=== PATIENT | female | born 1985 | race Caucasian/White ===

== ENCOUNTER 2020-05-11 20:27 | Emergency (ER) | payer MEDICAID, SELFPAY ==
--- NOTE | 2020-05-11 | XR_ITS ---
EXAMINATION: XR CHEST CLINICAL INFORMATION: Chest pain COMPARISON: 03/23/2014 TECHNIQUE: Frontal view of the chest was obtained. FINDINGS: Cardiac leads overlie the chest. The lungs are well expanded. There is no focal consolidation, edema, or effusion. No pneumothorax. The cardiomediastinal silhouette is within normal limits. No acute osseous abnormality. Epigastric surgical clips noted. IMPRESSION: Clear lungs.
[2020-05-11 20:33] VITALS: BP 149/98; BP 154/107; PULSE 100; PULSE 108; RESP 16; TEMP 36.9; O2SAT 100; BMI 23.7
--- NOTE | 2020-05-11 20:48 | ECG_ITS ---
Test Reason : chest pressure Blood Pressure : / mmHG Vent. Rate : 097 BPM Atrial Rate : 097 BPM P-R Int : 120 ms QRS Dur : 078 ms QT Int : 380 ms P-R-T Axes : 000 160 148 degrees QTc Int : 482 ms Normal sinus rhythm RSR' or QR pattern in V1 suggests right ventricular conduction delay suspect arm lead reversal due to axis shift Abnormal ECG When compared with ECG of 23-MAR-2014 00:12, advise repeat study Referred By: Generic ED Physician Electronically Signed By:WIN STAPLETON MD
[2020-05-11 21:49] VITALS: BP 149/88; PULSE 90; RESP 18
--- NOTE | 2020-05-11 21:52 | PC.NURSE ---
pt up to ambulate to restroom. pt denies dizziness at this time. pt ambulates with steady even gait. pt denies any chest pain but describes pain as pressure. pt alert, respirations easy, n/l, skin w/d/p. pt on monitor with sr. vs obtained. will continue to monitor pt.
[2020-05-11 22:00] VITALS: BP 149/88; PULSE 90; RESP 18; TEMP 36.9; O2SAT 100
--- NOTE | 2020-05-11 23:27 | ED.CHESTPAIN ---
HPI - Chest Pain General Chief Complaint: Dizziness Stated Complaint: chest tightness Time Seen by Provider: 05/11/20 22:40 Source: patient Mode of arrival: ambulatory History of Present Illness HPI narrative: patient states the chest pain that started earlier today. States epigastric and central chest that radiated to her head. Patient states this caused her to be lightheadedness and very nervous and came into emergency department. Patient denies nausea vomiting diarrhea denies dizziness. states pain has improved MD complaint: chest pain Onset: during rest Severity: moderate Quality: tightness Related Data Allergies Allergy/AdvReac Type Severity Reaction Status Date / Time latex [Latex] Allergy Intermediate ITCHINESS Verified 05/12/20 00:17 fentanyl [FENTANYL] Allergy Mild RASH Verified 05/12/20 00:17 morphine [MORPHINE] Allergy Mild RASH Verified 05/12/20 00:17 TREATED WITH BENADRYL amoxicillin [Augmentin] Allergy Unknown Rash Verified 05/12/20 00:17 ciprofloxacin Allergy Unknown Rash Verified 05/12/20 00:17 clavulanic acid [Augmentin] Allergy Unknown Rash Verified 05/12/20 00:17 hydromorphone [Dilaudid] Allergy Unknown Rash Verified 05/12/20 00:17 piperacillin [Zosyn] Allergy Unknown Rash Verified 05/12/20 00:17 tazobactam [Zosyn] Allergy Unknown Rash Verified 05/12/20 00:17 metoclopramide [From REGLAN] AdvReac Intermediate ANXIETY Verified 05/12/20 00:17 From ZOSYN Allergy Mild RASH Uncoded 05/12/20 00:17 Latex Allergy Mild Rash Uncoded 05/12/20 00:17 latex Allergy Mild Rash Uncoded 05/12/20 00:17 From DILAUDID AdvReac Mild RASH - Uncoded 04/19/20 17:51 TREAT WITH BENADRYL Review of Systems Review of Systems: Constitutional : No Weight loss, No Fever, No Chills, No Night Sweats, No Fatigue, No Malaise ENT/Mouth : No Hearing loss, No Ear Pain, No Nasal Congestion, No Sinus Pain, No Hoarseness, No sore throat, No Rhinorrhea, No Swallowing Difficulty Eyes: No Eye Pain, No Swelling, No Redness, No Foreign Body, No Discharge, No Vision Changes Cardiovascular : pos Chest Pain, pos SOB, no Dyspnea on Exertion, No Orthopnea, No Edema, No Palpitations Respiratory : No Cough, No Sputum, No Wheezing, No Smoke Exposure, No Dyspnea Gastrointestinal : pos Nausea, No Vomiting, No Diarrhea, No abdominal Pain, No Hematochezia, No Melena Genitourinary : No irregular bleeding, No Dysuria, No Urinary Frequency, No Hematuria, No Urinary Incontinence, No Urgency, No Flank Pain, No Urinary Flow Changes, No Hesitancy Musculoskeletal : No joint pain, No Myalgias, No Joint Swelling Skin : No Skin Lesions, No rash Neuro : No Weakness, No Numbness, No Paresthesias, No Loss of Consciousness, No Dizziness, No Headache Psych : No Anxiety/Panic, No Depression, No SI/HI/AH/VH Heme/Lymph: No Bruising, No Bleeding,No Lymphadenopathy Endocrine : No Polyuria, No Polydipsia, No Temperature Intolerance [facility] Past Medical History Medical History Hypothyroid Surgical History Liver transplant recipient Social History Social History Advance Directives: No Advance Directives Information Provided: No Physical Exam Vital Signs and I&O and Narrative: Vital Signs and I&O: Vital Signs Temp 98.5 F 05/11/20 22:00 Pulse 85 05/12/20 00:28 Resp 14 05/12/20 00:28 BP 154/105 H 05/12/20 00:28 Pulse Ox 97 05/12/20 00:28 Intake & Output 05/11/20 05/11/20 05/12/20 06:59 18:59 06:59 Intake Total 1000 / 1000 Balance 1000 / 1000 Weight 66.678 kg Intake: Intake, IV Amoun t 1000 / 1000 0.9 % Sodium C hloride 1,000 ml 1000 / 1000 @ 999 mls/hr I VCONT .Q1H1M FOR[facility]LY [facility], [facility] Rx#:[id number] Body Mass Index 23.7 vital signs reviewed pulse ox reviewed 100% room air interpreted by me Const: Other: Appearance: Alert. Oriented X3. No acute distress. Eyes: Pupils equal, round and reactive to light. ENT: Pharynx normal. Neck: Normal inspection. Neck supple. No lymph nodes noted. No crepitus CVS: Normal heart rate and rhythm. Pulses normal. Normal S1 and S2 Respiratory: No respiratory distress. Breath sounds normal. No Wheezing. No rales Abdomen: Soft and mild epigastric tender. No rigidity. No distention. good BS x4 Skin: Skin warm and dry. Normal skin color. Normal skin turgor. Extremities: No lower extremity edema. Neurovascular intact to all extremities. No Lacerations. No Rash Neuro: Oriented X 3. No motor deficit. No sensory deficit. Moving all extermities. No slurred speech. Course Reevaluation(s) Reevaluation #1: was called bedside secondary to patient being very anxious meeting that she wants to be knocked out she go to sleep Being angry with staff. I discussed with her laboratory work is pending. EKG is negative at 01:20. Negative troponin negative EKG at this point I doubt the patient has acute coronary syndrome for her chest pain. However throughout the stay patient got very anxious stating she had a headache however that has resolved. Will discharge home with follow-up with primary care doctor Time: 00:23 [facility] - Chest Pain Lab Data Attestation: I reviewed the patient's lab results. Result diagrams: 05/11/20 23:45 05/11/20 23:45 Labs: Lab Results 05/11/20 05/11/20 05/11/20 Range/Units 23:45 23:45 23:45 WBC 9.5 (4.8-10.8) X10*3/uL RBC 4.86 (4.20-5.50) X10*6/uL Hgb 14.0 (12.0-16.0) g/dl Hct 40.7 (37-47) % MCV 83.7 (80-98) fL MCH 28.8 (27.0-33.0) pg MCHC 34.4 (31.0-35.0) g/dl RDW 11.4 (11.0-16.0) % Plt Count 209 (160-400) X10*3/uL MPV 11.1 (9.4-12.3) fL Immature Gran % (Auto) 0.2 (0.0-0.4) % Neut % (Auto) 59.4 (45-73) % Lymph % (Auto) 28.7 (20-40) % [place] % (Auto) 8.7 (2-11) % Eos % (Auto) 2.8 (0-4) % Baso % (Auto) 0.2 (0-2) % Lymph # (Auto) 2.7 (1.2-4.9) X10*3/uL [place] # (Auto) 0.8 (0.1-1.2) X10*3/uL Eos # (Auto) 0.3 (0.0-0.4) X10*3/uL Baso # (Auto) 0.0 (0.0-0.2) X10*3/uL Abs Immat Gran (auto) 0.02 (0.00-0.03) X10*3/uL Absolute Neuts (auto) 5.7 (2.0-8.3) X10*3/uL Absolute Nucleated RBC 0.000 (0.0-0.012) X10*3/uL Nucleated RBC % (auto) 0.0 (0.0-0.2) /100WBC Sodium 139 (135-145) mmol/L Potassium 3.9 (3.3-5.1) mmol/l Chloride 107 (96-108) mmol/L Carbon Dioxide 25 (22-29) mmol/L Anion Gap 11 L (12-20) BUN 10 (9-16) mg/dL Creatinine 0.74 (0.5-1.4) mg/dL Estim Creat Clear Calc 101.2 Estimated GFR > 60 Random Glucose 98 (60-115) mg/dL Calcium 9.1 (8.4-10.2) mg/dL Total Bilirubin 0.7 (0.0-1.0) mg/dL Direct Bilirubin 0.3 (0.0-0.5) mg/dL AST 17 (5-31) U/L ALT 18 (0-31) U/L Alkaline Phosphatase 72 (39-117) U/L Troponin I High Sens < 3.5 (<3.5-17.0) ng/L Total Protein 7.2 (6.5-8.0) g/dL Albumin 4.4 (3.5-5.0) g/dL Lipase 102 H (8-78) U/L ECG Data ECG #1: Attestation: I personally reviewed and interpreted this ECG as follows: Interpretation: normal sinus rhythm. 97 beats per minute normal axis no ST-T changes normal IA intervals Discharge Plan Discharge Clinical Impression: Anxiety Chest pain Qualifiers: Chest pain type: unspecified Qualified Code(s): R07.9 - Chest pain, unspecified Headache Qualifiers: Headache type: unspecified Patient Disposition: Home, Self-Care Instructions: Chest Pain (ED), Acute Headache (ED), Anxiety (ED) Additional Instructions: Thank you for visiting the emergency department today. If your symptoms worsen or do not resolve completely please return to the emergency department immediately or call 911. if he have any questions please call your primary care physician Referrals: Diana Flores [Emergency Nurse] - 2 days Interventions: ED Discharge Assessment Last Done: 05/12/20 01:50 Discharge Date/Time: 05/12/20 01:51
[2020-05-11 23:51] LABS: MANUAL DIFF FLAG NO
[2020-05-11 23:53] LABS: Basophils Percent Auto 0.2 % (0-2); Eosinophils Absolute Auto 0.3 X10*3/uL (0.0-0.4); Eosinophils Percent Auto 2.8 % (0-4); Hematocrit 40.7 % (37-47); Imm Gran Abs Auto 0.02 X10*3/uL (0.00-0.03); Imm Gran Pct Auto 0.2 % (0.0-0.4); Lymphocytes Absolute Auto 2.7 X10*3/uL (1.2-4.9); Lymphocytes Percent Auto 28.7 % (20-40); Mean Corpuscular HGB Conc 34.4 g/dl (31.0-35.0); Mean Corpuscular Hemoglobin 28.8 pg (27.0-33.0); Mean Corpuscular Volume 83.7 fL (80-98); Mean Platelet Volume 11.1 fL (9.4-12.3); Monocytes Absolute Auto 0.8 X10*3/uL (0.1-1.2); Monocytes Percent Auto 8.7 % (2-11); Neutrophils Absolute Auto 5.7 X10*3/uL (2.0-8.3); Neutrophils Percent Auto 59.4 % (45-73); Platelet Count 209 X10*3/uL (160-400); Red Blood Count 4.86 X10*6/uL (4.20-5.50); Red Cell Distribution Width 11.4 % (11.0-16.0); White Blood Count 9.5 X10*3/uL (4.8-10.8)
[2020-05-12] MEDS: Famotidine/PF 20 MG/2 ML VIAL IVPUSH (00:20)
[2020-05-12] MEDS: Lidocaine HCl Viscous 2 % 15 ML SOLUTION MUCOUS MEM ×2 (00:20→00:21)
[2020-05-12] MEDS: PHENobarb/Hyoscy/Atropine/Scop 10 ML ELIXIR PO (00:21)
[2020-05-12] MEDS: Magnesium Hydrox/Alum Hydrox 30 ML ORAL.SUSP PO (00:21)
[2020-05-12] MEDS: 0.9 % Sodium Chloride 1,000 ML 999 ML IVCONT (00:22)
[2020-05-12 00:28] VITALS: BP 154/105; PULSE 85; RESP 14; O2SAT 97
[2020-05-12] MEDS: diphenhydrAMINE HCL 50 MG/ML VIAL 25 MG IVPUSH (00:34)
[2020-05-12 00:43] LABS: Alanine Aminotransferase 18 U/L (0-31); Albumin Level 4.4 g/dL (3.5-5.0); Alkaline Phosphatase 72 U/L (39-117); Anion Gap 11 (12-20); Aspartate Amino Transferase 17 U/L (5-31); Bilirubin Direct 0.3 mg/dL (0.0-0.5); Bilirubin Total 0.7 mg/dL (0.0-1.0); Blood Urea Nitrogen 10 mg/dL (9-16); Calcium 9.1 mg/dL (8.4-10.2); Carbon Dioxide 25 mmol/L (22-29); Chloride 107 mmol/L (96-108); Creatinine Clr Calc Pharmacy 101.2; Estimated Glomerular Filt Rate > 60; Glucose Random 98 mg/dL (60-115); Lipase 102 U/L (8-78); Potassium 3.9 mmol/l (3.3-5.1); Sodium 139 mmol/L (135-145); Total Protein 7.2 g/dL (6.5-8.0)
[2020-05-12 00:44] LABS: Troponin-I High Sensitivity < 3.5 ng/L (<3.5-17.0)
--- NOTE | 2020-05-12 00:50 | PC.NURSE ---
Pt tearful and requesting to speak with md. pt tearful in room and apologizing for bothering the nurse pt states i have a headache and feeling anxious MD aware and meds ordered. pt medicated with meds as per emar. Pt given gingerale and crackers to eat. Pt given warm blanket for comfort and pt is satisfied.
== END 2020-05-12 01:51 | disposition home or self-care (01) ==
PROVIDERS: Emergency Provider Emergency Medicine
DX: R07.9 Chest pain, unspecified (principal); F41.1 Generalized anxiety disorder; F43.0 Acute stress reaction
CPT/HCPCS: 36415; 71045; 80048; 80076; 83690; 84484; 85025; 93005; 96361; 96374; 96375; 99284; J1200; J2765

== ENCOUNTER 2020-08-07 14:12 | Outpatient (REF) | payer MEDICAID, SELFPAY | END 2020-08-07 14:13 | disposition home or self-care (01) | LOC: HO.LAB 14:12 | PROVIDERS: Visit Provider Internal Medicine | DX: Z20.828 Contact with and (suspected) exposure to other viral communicable diseases (principal) | CPT/HCPCS: 36415; C9803; U0003 ==

== ENCOUNTER 2020-08-13 15:23 | Outpatient (REF) | payer MEDICAID, SELFPAY ==
[2020-08-13 16:00] LABS: MANUAL DIFF FLAG NO
[2020-08-13 16:14] LABS: Basophils Percent Auto 0.3 % (0-2); Eosinophils Absolute Auto 0.1 X10*3/uL (0.0-0.4); Eosinophils Percent Auto 1.7 % (0-4); Hematocrit 44.6 % (37-47); Hemoglobin 14.7 g/dl (12.0-16.0); Imm Gran Abs Auto 0.05 X10*3/uL (0.00-0.03); Imm Gran Pct Auto 0.7 % (0.0-0.4); Lymphocytes Absolute Auto 1.7 X10*3/uL (1.2-4.9); Mean Corpuscular Hemoglobin 28.5 pg (27.0-33.0); Mean Corpuscular Volume 86.6 fL (80-98); Monocytes Absolute Auto 0.7 X10*3/uL (0.1-1.2); Monocytes Percent Auto 9.5 % (2-11); Neutrophils Absolute Auto 4.8 X10*3/uL (2.0-8.3); Neutrophils Percent Auto 64.8 % (45-73); Platelet Count 213 X10*3/uL (160-400); Red Blood Count 5.15 X10*6/uL (4.20-5.50); White Blood Count 7.5 X10*3/uL (4.8-10.8)
[2020-08-13 16:49] LABS: Alanine Aminotransferase 23 U/L (0-31); Albumin Level 4.5 g/dL (3.5-5.0); Alkaline Phosphatase 64 U/L (39-117); Anion Gap 12 (12-20); Aspartate Amino Transferase 23 U/L (5-31); Bilirubin Total 0.8 mg/dL (0.0-1.0); Blood Urea Nitrogen 11 mg/dL (9-16); Calcium 9.5 mg/dL (8.4-10.2); Carbon Dioxide 29 mmol/L (22-29); Chloride 103 mmol/L (96-108); Estimated Glomerular Filt Rate > 60; Glucose Random 97 mg/dL (60-115); Magnesium 2.1 mg/dL (1.6-2.6); Phosphorus 2.7 mg/dL (2.7-4.5); Potassium 4.2 mmol/l (3.3-5.1); Sodium 140 mmol/L (135-145); Total Protein 7.8 g/dL (6.5-8.0)
[2020-08-14 10:42] LABS: Tacrolimus Prograf 1.9 mcg/L
== END 2020-08-13 15:24 | disposition home or self-care (01) ==
LOC: HO.LAB 15:23
PROVIDERS: PCP Internal Medicine; Visit Provider Internal Medicine
DX: Z94.4 Liver transplant status (principal)
CPT/HCPCS: 36415; 80053; 80197; 83735; 84100; 85025

== ENCOUNTER 2020-10-19 16:23 | Emergency (ER) | payer MEDICAID, SELFPAY ==
[2020-10-19 16:36] VITALS: BP 115/75; PULSE 88; RESP 18; TEMP 36.8; O2SAT 95; BMI 24.1
== END 2020-10-19 17:18 | disposition left against medical advice (07) ==
PROVIDERS: Emergency Provider Emergency Medicine; PCP Internal Medicine
DX: R10.30 Lower abdominal pain, unspecified (principal)
CPT/HCPCS: 99282

== ENCOUNTER 2020-11-12 13:59 | Emergency (ER) | payer MEDICAID, SELFPAY ==
[2020-11-12 14:08] VITALS: PULSE 120; O2SAT 98
--- NOTE | 2020-11-12 14:10 | ECG_ITS ---
Test Reason : MEDICAL CLEARANCE Blood Pressure : / mmHG Vent. Rate : 097 BPM Atrial Rate : 097 BPM P-R Int : 140 ms QRS Dur : 076 ms QT Int : 372 ms P-R-T Axes : 065 074 070 degrees QTc Int : 472 ms Normal sinus rhythm Normal ECG When compared with ECG of 11-MAY-2020 20:43, T wave inversion no longer evident in Lateral leads Referred By: Fabiano Syed Electronically Signed By:MARTHA MOELLER
--- NOTE | 2020-11-12 14:10 | ED.PSYCH ---
HPI - Psych General Chief Complaint: Psychiatric Symptoms Stated Complaint: si Time Seen by Provider: 11/12/20 14:06 Source: patient Mode of arrival: ambulatory Limitations: no limitations History of Present Illness HPI Narrative: 35-year-old female with history of depression, anxiety prior overdose that led to her having liver failure and liver transplant in 2008 being followed by Psychiatry she has had admissions since here 6 years ago she comes in today complaining of increased depression and suicidal ideation today she called a male block splitter operator whom she was intermittent with and had abrupt break up several months ago and has not toxic own today she was feeling down so she wanted his companionship and call them and she felt he was being very cold to her and not recipient to her emotional needs this triggered her anxiety and depression and made vague SI statements. She states that she has otherwise been taking medications and skipped yesterday as she has been feeling down. Related Data Home Medications Medication Instructions Recorded Confirmed amlodipine 10 mg PO DAILY 11/12/20 11/12/20 citalopram [Celexa] 10 mg PO DAILY 11/12/20 11/12/20 citalopram [Celexa] 20 mg PO DAILY 11/12/20 11/12/20 dextroamphetamine-amphetamine See Rx Instructions .ROUTE .COMPLEX 11/12/20 11/12/20 [Adderall] docusate sodium [Colace] 100 mg PO BID PRN 11/12/20 11/12/20 levothyroxine 50 mcg PO DAILY 11/12/20 11/12/20 lorazepam 0.5 - 1 mg PO TID PRN 11/12/20 11/12/20 omeprazole 20 mg PO DAILY 11/12/20 11/12/20 ondansetron HCl [Zofran] 4 mg PO Q8H PRN 11/12/20 11/12/20 tacrolimus 2 mg PO BID 11/12/20 11/12/20 ursodiol 300 mg PO BID 11/12/20 11/12/20 Allergies Allergy/AdvReac Type Severity Reaction Status Date / Time latex [Latex] Allergy Intermediate ITCHINESS Verified 05/12/20 00:17 fentanyl [FENTANYL] Allergy Mild RASH Verified 05/12/20 00:17 morphine [MORPHINE] Allergy Mild RASH Verified 05/12/20 00:17 TREATED WITH BENADRYL amoxicillin [Augmentin] Allergy Unknown Rash Verified 05/12/20 00:17 ciprofloxacin Allergy Unknown Rash Verified 05/12/20 00:17 clavulanic acid [Augmentin] Allergy Unknown Rash Verified 05/12/20 00:17 hydromorphone [Dilaudid] Allergy Unknown Rash Verified 05/12/20 00:17 piperacillin [Zosyn] Allergy Unknown Rash Verified 05/12/20 00:17 tazobactam [Zosyn] Allergy Unknown Rash Verified 05/12/20 00:17 metoclopramide [From REGLAN] AdvReac Intermediate ANXIETY Verified 05/12/20 00:17 From ZOSYN Allergy Mild RASH Uncoded 05/12/20 00:17 Latex Allergy Mild Rash Uncoded 05/12/20 00:17 latex Allergy Mild Rash Uncoded 05/12/20 00:17 From DILAUDID AdvReac Mild RASH - Uncoded 04/19/20 17:51 TREAT WITH BENADRYL Review of Systems Review of Systems: Constitutional: No Weight loss, No Fever, No Chills, No Night Sweats, No Fatigue, No Malaise ENT/Mouth: No Hearing loss, No Ear Pain, No Nasal Congestion, No Sinus Pain, No Hoarseness, No sore throat, No Rhinorrhea, No Swallowing Difficulty Eyes: No Eye Pain, No Swelling, No Redness, No Foreign Body, No Discharge, No Vision Changes Cardiovascular: No Chest Pain, No SOB, No Dyspnea on Exertion, No Orthopnea, No Edema, No Palpitations Respiratory: No Cough, No Sputum, No Wheezing, No Dyspnea Gastrointestinal: No Nausea, No Vomiting, No Diarrhea, No Constipation, No abdominal Pain, No Hematochezia, No Melena Genitourinary: no irregular bleeding, No Dysuria, No Urinary Frequency, No Hematuria, No Urinary Incontinence, No Urgency, No Flank Pain, No Urinary Flow Changes, No Hesitancy Musculoskeletal: No joint pain, No Myalgias, No Joint Swelling Skin: No Skin Lesions, No rash Neuro: No Weakness, No Numbness, No Paresthesias, No Loss of Consciousness, No Dizziness, No Headache Psych: As noted per HPI Heme/Lymph: No Bruising, No Bleeding,No Lymphadenopathy Endocrine: No Polyuria, No Polydipsia, No Temperature Intolerance Yes all other systems are reviewed and are negative PMFSH Past Medical History Medical History Hypothyroid Surgical History Liver transplant recipient Social History Social History Alcohol intake: never Smoking Status: Never smoker Use of substances other than those prescribed or required for medical reasons: No Advance Directives: No Advance Directives Information Provided: No Physical Exam Vital Signs: Vital Signs: Last Vital Signs Temp 99.1 F 11/12/20 14:33 Pulse 117 H 11/12/20 14:33 Resp 18 11/12/20 16:13 BP 148/99 H 11/12/20 14:33 Pulse Ox 97 11/12/20 14:33 Body Mass Index 24.1 Reviewed Const: General: cooperative, healthy appearing and anxious; No intoxicated appearing Nutritional Appearance: average body habitus Orientation/consciousness: patient oriented x3 HENMT: Head: Yes normal to inspection Ears: hearing grossly normal bilaterally Eyes: General: appearance normal, both eyes and all related structures Visual Hanna: normal visual hanna by confrontation Neck: Neck: Yes normal visual inspection, No positive Brudzinski's sign, No positive Kernig's sign and No tender Thyroid: Thyroid normal Chest: Chest palpation & inspection: normal inspection of the chest Resp: Effort & Inspection: normal respiratory effort Cardio: Jugular venous distension: no JVD Rhythm: regular rhythm Heart sounds: S1 normal heart sound present and S2 normal heart sound present GI: Inspection: Yes normal to inspection Palpation (GI): Soft to palpation Percussion: Yes normal to percussion Auscultation: normal bowel sounds : General: Yes no CVA tenderness Back/Spine/Pelvis: Back: no CVA tenderness Skin: General skin exam: no rashes or lesions noted Neuro: General: patient oriented x3 Extrem: General: Yes normal to inspection Course Reevaluation(s) Reevaluation #1: Acute anxiety secondary situational stress history as noted above. Will get medical screening labs and care team evaluation. Ativan has worked well in the past. Off note she did tell me that she just finished her antibiotics for recent UTI she did have some burning like lower abdominal pain which has improved. Reevaluation #2: Labs overall reassuring Has been much calmer after receiving Ativan 1 mg. She was medically cleared and subsequently evaluate by the care team Who also consult with the mother Has extensive outpatient follow-up will be in to do follow-up tomorrow with her psychiatrist Dr. Nicole Care team has cleared patient for discharge. Patient contracts for safety. No immediate concerns. Stable for discharge. Consultations Consultation #1: Care team Consultation #2: I spoke to patient's mother Quiana at [phone] She feels that she better at home with her they have extensive plan this is not a new event she has has numerous events like this and usually once and motion control she can go home better for her to be at home more coming and controlled environment She will be able to follow-up tomorrow with her psychiatrist who has direct contact to. She requests and feels better patient going home with her. MDM - Psych Lab Data Result diagrams: 11/12/20 15:09 11/12/20 15:09 Labs: Lab Results 11/12/20 11/12/20 11/12/20 Range/Units 14:53 14:53 14:53 WBC (4.8-10.8) X10*3/uL RBC (4.20-5.50) X10*6/uL Hgb (12.0-16.0) g/dl Hct (37-47) % MCV (80-98) fL MCH (27.0-33.0) pg MCHC (31.0-35.0) g/dl RDW (11.0-16.0) % Plt Count (160-400) X10*3/uL MPV (9.4-12.3) fL Immature Gran % (Auto) (0.0-0.4) % Neut % (Auto) (45-73) % Lymph % (Auto) (20-40) % [place] % (Auto) (2-11) % Eos % (Auto) (0-4) % Baso % (Auto) (0-2) % Lymph # (Auto) (1.2-4.9) X10*3/uL [place] # (Auto) (0.1-1.2) X10*3/uL Eos # (Auto) (0.0-0.4) X10*3/uL Baso # (Auto) (0.0-0.2) X10*3/uL Abs Immat Gran (auto) (0.00-0.03) X10*3/uL Absolute Neuts (auto) (2.0-8.3) X10*3/uL Absolute Nucleated RBC (0.0-0.012) X10*3/uL Nucleated RBC % (auto) (0.0-0.2) /100WBC PT (10.8-13.0) SEC INR (0.9-1.1) APTT (24.1-38.0) SEC Sodium (135-145) mmol/L Potassium (3.3-5.1) mmol/L Chloride (96-108) mmol/L Carbon Dioxide (22-29) mmol/L Anion Gap (12-20) BUN (9-16) mg/dL Creatinine (0.5-1.4) mg/dL Estim Creat Clear Calc Estimated GFR Random Glucose (60-115) mg/dL Calcium (8.4-10.2) mg/dL Total Bilirubin (0.0-1.0) mg/dL AST (5-31) U/L ALT (0-31) U/L Alkaline Phosphatase (39-117) U/L Total Protein (6.5-8.0) g/dL Albumin (3.5-5.0) g/dL Lipase (8-78) U/L Urine Color STRAW Urine Appearance CLEAR Urine pH 5.5 (5.0-8.0) Ur Specific [place] <= 1.005 (1.005-1.025) Urine Protein NEG (NEG-TRACE) MG/DL Urine Glucose (UA) NEG (NEG) MG/DL Urine Ketones NEG (NEG) MG/DL Urine Blood NEG (NEG) Urine Nitrite NEG (NEG) Ur Leukocyte Esterase NEG (NEG) Urine RBC 0 (0) /HPF Urine WBC 0-2 (0-4) /HPF Ur Squamous Epith Cells NONE /LPF Urine Bacteria NONE /LPF Urine Test NEGATIVE (NEGATIVE) Urine Opiates Screen POSITIVE H (Not Detect) Ur Barbiturates Screen Not Detected (Not Detect) Ur Phencyclidine Scrn Not Detected (Not Detect) Ur Amphetamines Screen POSITIVE H (Not Detect) U Benzodiazepines Scrn Not Detected (Not Detect) Urine Cocaine Screen Not Detected (Not Detect) U Marijuana (THC) Screen Not Detected (Not Detect) Ethyl Alcohol mg/dL COVID-19 (ODIN) (Negative) COVID-19 Clin Com 11/12/20 11/12/20 11/12/20 Range/Units 15:09 15:09 15:09 WBC 6.6 (4.8-10.8) X10*3/uL RBC 4.49 (4.20-5.50) X10*6/uL Hgb 13.1 (12.0-16.0) g/dl Hct 38.6 (37-47) % MCV 86.0 (80-98) fL MCH 29.2 (27.0-33.0) pg MCHC 33.9 (31.0-35.0) g/dl RDW 11.9 (11.0-16.0) % Plt Count 180 (160-400) X10*3/uL MPV 11.5 (9.4-12.3) fL Immature Gran % (Auto) 0.3 (0.0-0.4) % Neut % (Auto) 70.2 (45-73) % Lymph % (Auto) 21.4 (20-40) % [place] % (Auto) 6.7 (2-11) % Eos % (Auto) 1.2 (0-4) % Baso % (Auto) 0.2 (0-2) % Lymph # (Auto) 1.4 (1.2-4.9) X10*3/uL [place] # (Auto) 0.4 (0.1-1.2) X10*3/uL Eos # (Auto) 0.1 (0.0-0.4) X10*3/uL Baso # (Auto) 0.0 (0.0-0.2) X10*3/uL Abs Immat Gran (auto) 0.02 (0.00-0.03) X10*3/uL Absolute Neuts (auto) 4.6 (2.0-8.3) X10*3/uL Absolute Nucleated RBC 0.000 (0.0-0.012) X10*3/uL Nucleated RBC % (auto) 0.0 (0.0-0.2) /100WBC PT 12.4 (10.8-13.0) SEC INR 1.0 (0.9-1.1) APTT 30.3 (24.1-38.0) SEC Sodium 140 (135-145) mmol/L Potassium 4.3 (3.3-5.1) mmol/L Chloride 105 (96-108) mmol/L Carbon Dioxide 27 (22-29) mmol/L Anion Gap 12 (12-20) BUN 7 L (9-16) mg/dL Creatinine 0.80 (0.5-1.4) mg/dL Estim Creat Clear Calc 89.1 Estimated GFR > 60 Random Glucose 102 (60-115) mg/dL Calcium 9.4 (8.4-10.2) mg/dL Total Bilirubin 0.6 (0.0-1.0) mg/dL AST 17 (5-31) U/L ALT 18 (0-31) U/L Alkaline Phosphatase 57 (39-117) U/L Total Protein 7.3 (6.5-8.0) g/dL Albumin 4.4 (3.5-5.0) g/dL Lipase 59 (8-78) U/L Urine Color Urine Appearance Urine pH (5.0-8.0) Ur Specific [place] (1.005-1.025) Urine Protein (NEG-TRACE) MG/DL Urine Glucose (UA) (NEG) MG/DL Urine Ketones (NEG) MG/DL Urine Blood (NEG) Urine Nitrite (NEG) Ur Leukocyte Esterase (NEG) Urine RBC (0) /HPF Urine WBC (0-4) /HPF Ur Squamous Epith Cells /LPF Urine Bacteria /LPF Urine Test (NEGATIVE) Urine Opiates Screen (Not Detect) Ur Barbiturates Screen (Not Detect) Ur Phencyclidine Scrn (Not Detect) Ur Amphetamines Screen (Not Detect) U Benzodiazepines Scrn (Not Detect) Urine Cocaine Screen (Not Detect) U Marijuana (THC) Screen (Not Detect) Ethyl Alcohol mg/dL COVID-19 (ODIN) (Negative) COVID-19 Clin Com 11/12/20 11/12/20 Range/Units 15:09 15:09 WBC (4.8-10.8) X10*3/uL RBC (4.20-5.50) X10*6/uL Hgb (12.0-16.0) g/dl Hct (37-47) % MCV (80-98) fL MCH (27.0-33.0) pg MCHC (31.0-35.0) g/dl RDW (11.0-16.0) % Plt Count (160-400) X10*3/uL MPV (9.4-12.3) fL Immature Gran % (Auto) (0.0-0.4) % Neut % (Auto) (45-73) % Lymph % (Auto) (20-40) % [place] % (Auto) (2-11) % Eos % (Auto) (0-4) % Baso % (Auto) (0-2) % Lymph # (Auto) (1.2-4.9) X10*3/uL [place] # (Auto) (0.1-1.2) X10*3/uL Eos # (Auto) (0.0-0.4) X10*3/uL Baso # (Auto) (0.0-0.2) X10*3/uL Abs Immat Gran (auto) (0.00-0.03) X10*3/uL Absolute Neuts (auto) (2.0-8.3) X10*3/uL Absolute Nucleated RBC (0.0-0.012) X10*3/uL Nucleated RBC % (auto) (0.0-0.2) /100WBC PT (10.8-13.0) SEC INR (0.9-1.1) APTT (24.1-38.0) SEC Sodium (135-145) mmol/L Potassium (3.3-5.1) mmol/L Chloride (96-108) mmol/L Carbon Dioxide (22-29) mmol/L Anion Gap (12-20) BUN (9-16) mg/dL Creatinine (0.5-1.4) mg/dL Estim Creat Clear Calc Estimated GFR Random Glucose (60-115) mg/dL Calcium (8.4-10.2) mg/dL Total Bilirubin (0.0-1.0) mg/dL AST (5-31) U/L ALT (0-31) U/L Alkaline Phosphatase (39-117) U/L Total Protein (6.5-8.0) g/dL Albumin (3.5-5.0) g/dL Lipase (8-78) U/L Urine Color Urine Appearance Urine pH (5.0-8.0) Ur Specific [place] (1.005-1.025) Urine Protein (NEG-TRACE) MG/DL Urine Glucose (UA) (NEG) MG/DL Urine Ketones (NEG) MG/DL Urine Blood (NEG) Urine Nitrite (NEG) Ur Leukocyte Esterase (NEG) Urine RBC (0) /HPF Urine WBC (0-4) /HPF Ur Squamous Epith Cells /LPF Urine Bacteria /LPF Urine Test (NEGATIVE) Urine Opiates Screen (Not Detect) Ur Barbiturates Screen (Not Detect) Ur Phencyclidine Scrn (Not Detect) Ur Amphetamines Screen (Not Detect) U Benzodiazepines Scrn (Not Detect) Urine Cocaine Screen (Not Detect) U Marijuana (THC) Screen (Not Detect) Ethyl Alcohol < 10 mg/dL COVID-19 (ODIN) Negative (Negative) COVID-19 Clin Com See Note Discharge Plan Discharge Clinical Impression: Acute anxiety Patient Disposition: Home, Self-Care Instructions: Anxiety (ED) Additional Instructions: Please follow-up with your outpatient provider tomorrow Return if any concerns or worsening symptoms Thank you Prescriptions: No Action ondansetron HCl [Zofran] 4 mg Tablet 4 mg PO Q8H PRN (Reason: Nausea) RF: 0 dextroamphetamine-amphetamine [Adderall] 10 mg Tablet See Rx Instructions .ROUTE .COMPLEX RF: 0 amlodipine 5 mg Tablet 10 mg PO DAILY RF: 0 citalopram [Celexa] 20 mg Tablet 20 mg PO DAILY RF: 0 citalopram [Celexa] 20 mg Tablet 10 mg PO DAILY RF: 0 levothyroxine 50 mcg Tablet 50 mcg PO DAILY RF: 0 ursodiol 300 mg Capsule 300 mg PO BID RF: 0 docusate sodium [Colace] 100 mg Capsule 100 mg PO BID PRN (Reason: Constipation) RF: 0 omeprazole 20 mg Capsule,Delayed Release(Dr/Ec) 20 mg PO DAILY RF: 0 lorazepam 1 mg Tablet 0.5 - 1 mg PO TID PRN (Reason: Anxiety) RF: 0 tacrolimus 1 mg Capsule 2 mg PO BID RF: 0 Referrals: Rick Davenport MD [Primary Care Provider] - 1 day
[2020-11-12 14:28] VITALS: BP 148/99; PULSE 117; RESP 18; TEMP 37.3; O2SAT 97; BMI 24.1
[2020-11-12 14:33] VITALS: BP 148/99; PULSE 117; RESP 20; TEMP 37.3; O2SAT 97
[2020-11-12] MEDS: LORazepam 1 MG TABLET PO (14:39)
[2020-11-12 15:06] LABS: Glucose Urine UA NEG (NEG); Leukocyte Esterase Urine NEG (NEG); Nitrite Urine NEG (NEG); PH 5.5 (5.0-8.0); Specific Gravity - Urine <= 1.005 (1.005-1.025); Urine Blood NEG (NEG); Urine Ketones NEG (NEG); Urine Protein NEG (NEG-TRACE)
[2020-11-12 15:08] LABS: Appearance Urine CLEAR; Color Urine STRAW; UPreg QC Valid YES; Urine Pregnancy NEGATIVE (NEGATIVE)
[2020-11-12 15:17] LABS: MANUAL DIFF FLAG NO
[2020-11-12 15:18] LABS: RBC Urine 0 /HPF (0); WBC Urine 0-2 /HPF (0-4)
[2020-11-12 15:24] LABS: Basophils Percent Auto 0.2 % (0-2); Eosinophils Absolute Auto 0.1 X10*3/uL (0.0-0.4); Eosinophils Percent Auto 1.2 % (0-4); Hematocrit 38.6 % (37-47); Hemoglobin 13.1 g/dl (12.0-16.0); Imm Gran Abs Auto 0.02 X10*3/uL (0.00-0.03); Imm Gran Pct Auto 0.3 % (0.0-0.4); Lymphocytes Absolute Auto 1.4 X10*3/uL (1.2-4.9); Lymphocytes Percent Auto 21.4 % (20-40); Mean Corpuscular HGB Conc 33.9 g/dl (31.0-35.0); Mean Corpuscular Hemoglobin 29.2 pg (27.0-33.0); Mean Platelet Volume 11.5 fL (9.4-12.3); Monocytes Absolute Auto 0.4 X10*3/uL (0.1-1.2); Monocytes Percent Auto 6.7 % (2-11); Neutrophils Absolute Auto 4.6 X10*3/uL (2.0-8.3); Neutrophils Percent Auto 70.2 % (45-73); Platelet Count 180 X10*3/uL (160-400); Red Blood Count 4.49 X10*6/uL (4.20-5.50); Red Cell Distribution Width 11.9 % (11.0-16.0); White Blood Count 6.6 X10*3/uL (4.8-10.8)
[2020-11-12 15:27] LABS: Prothrombin Time 12.4 SEC (10.8-13.0)
[2020-11-12 15:30] LABS: Partial Thromboplastin Time 30.3 SEC (24.1-38.0)
[2020-11-12 15:34] LABS: Amphetamine Screen Urine POSITIVE (Not Detect); Barbiturates, Urine Not Detected (Not Detect); Benzodiazepines Screen Urine Not Detected (Not Detect); Cannabinoid Screen Urine Not Detected (Not Detect); Cocaine Screen Urine Not Detected (Not Detect); Opiate Screen Urine POSITIVE (Not Detect); Phencyclidine Screen Urine Not Detected (Not Detect)
[2020-11-12 15:40] LABS: COVID-19 Test Negative (Negative)
[2020-11-12 15:43] LABS: Ethanol < 10 mg/dL
[2020-11-12 15:46] LABS: Alanine Aminotransferase 18 U/L (0-31); Albumin Level 4.4 g/dL (3.5-5.0); Alkaline Phosphatase 57 U/L (39-117); Anion Gap 12 (12-20); Aspartate Amino Transferase 17 U/L (5-31); Bilirubin Total 0.6 mg/dL (0.0-1.0); Blood Urea Nitrogen 7 mg/dL (9-16); Calcium 9.4 mg/dL (8.4-10.2); Carbon Dioxide 27 mmol/L (22-29); Chloride 105 mmol/L (96-108); Creatinine Clr Calc Pharmacy 89.1; Estimated Glomerular Filt Rate > 60; Glucose Random 102 mg/dL (60-115); Lipase 59 U/L (8-78); Potassium 4.3 mmol/L (3.3-5.1); Sodium 140 mmol/L (135-145); Total Protein 7.3 g/dL (6.5-8.0)
--- NOTE | 2020-11-12 16:00 | PC.NURSE ---
PT sobbing in community area, verbal reassurance given. PT reports she had an argument with someone she cares about and that she is too broken to love , pt reports the ativan was ineffective, she is having a hard time controlling her crying, pt reports she has never been this bad before. PT repors she had a liver transplant 10 years ago from an unintentional tylenol overdose. PT reports that in the past therapy and medication have been helpful, states that she has been missing doses of her medication due to sleeping too much due to her depression.
[2020-11-12 16:13] VITALS: RESP 18
--- NOTE | 2020-11-12 16:55 | PC.NURSE ---
PT's mother called, stated that PT is working closely with two psychiatrists Dr Valentin and Dr Nagy, she said that they are concerned that PT's medications will be changed. She states that PT has a safe place to go and is requesting a call before decisions are made reguarding PT. Mom (Quiana [phone])
[2020-11-12] MEDS: diphenhydrAMINE HCL 25 MG TABLET 50 MG PO (17:52)
[2020-11-12] MEDS: oxyCODONE HCl Immed Release 5 MG TABLET PO (17:52)
--- NOTE | 2020-11-12 18:01 | PC.NURSE ---
PT's mother requesting updates about plan of care, pt gave verbal permission to update her mother.
--- NOTE | 2020-11-12 19:12 | PC.NURSE ---
Report received. PT is resting in her room. Asked politely for warm blankets. Calm and cooperative. PT is waiting to be seen by CARE team.
--- NOTE | 2020-11-12 21:12 | MHC.CARE ---
CARE team consult requested due to [facility] having no clinicians available to assess pt until either the overnight shift or the morning. Pt arrived to ED via EMS very distraught, saying she wanted to , and was inconsolable. Pt received 2 doses of ativan which had positive effect with pt's level of dysregulation. Pt reported that she has been having increasing depression for the past week, and passive SI with no plan or intent to harm herself. Pt has two psychiatrists that she works with (Dr. Valentin and Dr. Nagy) and started with a new therapist through [facility] a few weeks ago. Pt lives with her mother whom she feels safe with. Pt identified triggering event today was feeling betrayed and abandoned by a friend whom she felt that she could trust and rely on. This quality analyst/technical writer discussed possible referral for PHP, and described the program and the benefit pt would receive from it. Pt doesn't feel that an inpt psychiatric admission would be helpful to her at this time and isn't presenting as an acute risk to harm herself. Pt reported that she lives with her mother and feels safe with her at home. Pt and her mother are comfortable with her discharging home. They'll be following up with all of her behavioral health providers in the morning. PHP compliance coordinator contacted re: referral for treatment. ED provider initially not in agreement with disposition, however he spoke with pt's mother directly in order to finalize plan of care.
== END 2020-11-12 22:11 | disposition home or self-care (01) ==
PROVIDERS: Nurse Practitioner Primary Care; Emergency Provider Emergency Medicine; PCP Internal Medicine
DX: F41.9 Anxiety disorder, unspecified (principal); F32.9 Major depressive disorder, single episode, unspecified; R45.851 Suicidal ideations; Z20.822 Contact with and (suspected) exposure to COVID-19; F11.90 Opioid use, unspecified, uncomplicated; F15.90 Other stimulant use, unspecified, uncomplicated
CPT/HCPCS: 36415; 80053; 80307; 80320; 81001; 81025; 83690; 85025; 85610; 85730; 87635; 93005; 99284; 99285; Q0163

== ENCOUNTER 2020-12-20 10:20 | Observation (INO) | payer MEDICAID, SELFPAY ==
[2020-12-20] VITALS (11 sets, daily range): BP systolic 102–140; BP diastolic 67–90; PULSE 110–135; RESP 17–18; TEMP 36.6–36.9; O2SAT 97–100; BMI 24.2
--- NOTE | ~2020-12-20 | XR_ITS ---
EXAMINATION: XR CHEST CLINICAL INFORMATION: SOB COMPARISON: None TECHNIQUE: Frontal view of the chest was obtained. FINDINGS: Both lungs are fairly well-expanded and clear. The heart size and pulmonary vascularity is normal. No gross bony abnormality seen. XR/XR chest 1V IMPRESSION: Unremarkable chest exam.
--- NOTE | ~2020-12-20 | CT_ITS ---
EXAMINATION: CT ANGIOGRAM OF THE CHEST WITH AND WITHOUT CONTRAST (CT PULMONARY ANGIOGRAM FOR PE) CLINICAL INFORMATION: Reason for Exam SOB, chest pain, tachy, ddimer elevated COMPARISON: Chest radiographs 12/20/2020, 05/11/2020 TECHNIQUE: Prior to contrast administration, noncontrast localization images were obtained. Subsequently, multidetector volumetric imaging was performed from the thoracic inlet to below the diaphragms following the administration of 65 mL Omnipaque 350 intravenous contrast. No contrast reaction reported Sagittal, coronal, and MIP oblique sagittal reformatted images were obtained on the CT workstation, uploaded to PACS, and reviewed. This CT examination was performed using dose optimization techniques as appropriate, variously including the following: *Automated exposure control *Adjustment of mA and/or kV according to patient size (this includes techniques or standardized protocols for targeted exams where dose is matched to indication/reason for exam; i.e. extremities or head) *Use of iterative reconstruction technique Total exam dose-length product 242 mGy-cm FINDINGS: QUALITY OF STUDY/CONTRAST BOLUS: Satisfactory. PULMONARY ARTERIES: No central or segmental pulmonary emboli. THORACIC AORTA: No aneurysm or dissection. LUNG: No focal consolidation, nodules or masses. Incidental small intraparenchymal node along left oblique fissure, series 7/212. PLEURA: No pleural effusion or pneumothorax. MEDIASTINUM: Normal heart size. No pericardial effusion. No hilar or mediastinal lymphadenopathy. No evidence of septal bowing or right heart strain. CHEST WALL/AXILLA: No axillary or internal mammary lymphadenopathy. OSSEOUS STRUCTURES: No acute or suspicious osseous abnormality. UPPER ABDOMEN: Prior cholecystectomy. No reflux of contrast into the hepatic veins to suggest elevated right heart pressures. CT/CT angio chest PE protocol IMPRESSION: 1. No pulmonary embolism. No thoracic aortic dissection. 2. Lungs clear. No pneumothorax, airspace consolidation, or effusion. VTE: negative
--- NOTE | ~2020-12-20 | CT_ITS ---
EXAMINATION: CT SOFT TISSUE NECK WITHOUT CONTRAST CLINICAL INFORMATION: Neck pain and swelling COMPARISON: None TECHNIQUE: Helical imaging was performed in the axial plane with generation of coronal and sagittal reformatted images. This CT examination was performed using dose optimization techniques as appropriate, variously including the following: *Automated exposure control *Adjustment of mA and/or kV according to patient size (this includes techniques or standardized protocols for targeted exams where dose is matched to indication/reason for exam; i.e. extremities or head) *Use of iterative reconstruction technique DLP: 393 mGy-cm FINDINGS: No cervical adenopathy is identified. The parotid glands are homogeneous in attenuation. The submandibular glands are normal. No contour abnormality or pathologic enhancement is seen within the oral cavity or pharyngeal mucosal space. There is moderate narrowing of the pharyngeal airway from bilateral adenoid hyperplasia. There is no hypodensity seen to suspect any abscess or mass effect. Tonsils The laryngeal structures are normal. The parapharyngeal fat is preserved. The carotid sheath vasculature opacify normally. No extra mucosal soft tissue mass or fluid collection is seen. No retropharyngeal fluid collection is seen. The thyroid gland is normal. The superior mediastinum is unremarkable. The lung apices are clear. The mastoid air cells and visualized portions of the paranasal sinuses are well-aerated. The temporomandibular joints are normal. No periapical disease is identified. No osseous abnormalities are seen. The imaged portions of the brain parenchyma are unremarkable. CT/CT soft tissue neck wo con IMPRESSION: Moderate narrowing of pharyngeal airway from tonsillar hypertrophy. No peritonsillar abscess or mass effect seen. There is no abnormal neck lymphadenopathy.
--- NOTE | 2020-12-20 10:32 | ECG_ITS ---
Test Reason : SYNCOPE Blood Pressure : / mmHG Vent. Rate : 112 BPM Atrial Rate : 112 BPM P-R Int : 142 ms QRS Dur : 074 ms QT Int : 356 ms P-R-T Axes : 040 030 025 degrees QTc Int : 485 ms Sinus tachycardia Otherwise normal ECG When compared with ECG of 12-NOV-2020 17:08, Nonspecific T wave abnormality now evident in Inferior leads Referred By: Chasidy Jones Electronically Signed By:CLAY GALLEGOS MD
--- NOTE | 2020-12-20 10:44 | PC.NURSE ---
THIS PTS MOTHER CALLED REGARDING PTS CARE PLAN AND ER INTERVENTIONS. SHE HAS REQUESTED THAT THE PT GET A CARDIAC MRI RELATED TO FAMILY HISTORY. SHE ALSO WOULD LIKE TO PROVIDE COLLATERAL INFORMATION FOR HER DAUGHTERS CARE AND WOULD LIKE A PROVIDER TO CALL HER. SHE STATES SHE HAS ALSO SPOKEN TO THE TRANSPLANT TEAM REGARDING HER DAUGHTERS SYMPTOMS.
--- NOTE | 2020-12-20 10:48 | ED_ITS ---
HPI - Syncope General Chief Complaint: Syncope Stated Complaint: CHEST PRESSURE W/NEAR SYNCOPE Time Seen by Provider: 12/20/20 10:32 Source: patient and EMS Mode of arrival: EMS Limitations: no limitations History of Present Illness HPI narrative: 35 y/o female with history of liver transplantation at age 23 due to accidental acetaminophen overdose, ADHD, chronic pain on chronic opiates, HTN, depression/anxiety, hypothyroidism who presents to the ED with feeling lightheaded, dizzy, with chest pressure and palpitations since yesterday morning. She states she was seen at [facility] yesterday for a follow up of a ovarian cyst and they recommended she come to the ER because she was not feeling well. She states since then she has been feeling worse. She feels like she is going to pass out whenever she stands up. She feels racing heart, short of breath and generalized weakness. She describes a 2/10 chest pressure as well that does not radiate. She has diffuse neck pain 7/10 that is worse with movement. No fever or chills. MD complaint: felt faint and almost passed out Onset (ago): day(s) (1-2) Prodromal symptoms: headache, lightheaded, chest pain, palpitations, heart racing, shortness of breath and nausea/vomiting Context: during exertion and standing up Injuries sustained associated with event: none Current symptoms: lightheaded, chest pain, shortness of breath, nausea and weakness Treatments prior to arrival: IV fluids Related Data Home Medications Medication Instructions Recorded Confirmed amlodipine 5 mg PO DAILY 11/12/20 12/20/20 citalopram [Celexa] 10 mg PO BEDTIME 11/12/20 12/20/20 citalopram [Celexa] 20 mg PO DAILY 11/12/20 12/20/20 docusate sodium [Colace] 200 mg PO BID PRN 11/12/20 12/20/20 levothyroxine 50 mcg PO DAILY@0600 11/12/20 12/20/20 lorazepam 0.5 - 1 mg PO TID PRN 11/12/20 12/20/20 omeprazole 20 mg PO DAILY PRN 11/12/20 12/20/20 ondansetron HCl [Zofran] 4 mg PO Q8H PRN 11/12/20 12/20/20 tacrolimus 2 mg PO BID 11/12/20 12/20/20 ursodiol 300 mg PO BID 11/12/20 12/20/20 dextroamphetamine-amphetamine 10 mg PO DAILY@1400 12/20/20 12/20/20 [Adderall] dextroamphetamine-amphetamine 20 mg PO DAILY 12/20/20 12/20/20 [Adderall] hydrocodone-acetaminophen 1 tab PO BID PRN 12/20/20 12/20/20 lidocaine 1 patch TOPICAL DAILY 12/20/20 12/20/20 linaclotide [Linzess] 145 mcg PO DAILY 12/20/20 12/20/20 Allergies Allergy/AdvReac Type Severity Reaction Status Date / Time latex [Latex] Allergy Intermediate ITCHINESS Verified 05/12/20 00:17 fentanyl [FENTANYL] Allergy Mild RASH Verified 05/12/20 00:17 morphine [MORPHINE] Allergy Mild RASH Verified 05/12/20 00:17 TREATED WITH BENADRYL amoxicillin [Augmentin] Allergy Unknown Rash Verified 05/12/20 00:17 ciprofloxacin Allergy Unknown Rash Verified 05/12/20 00:17 clavulanic acid [Augmentin] Allergy Unknown Rash Verified 05/12/20 00:17 hydromorphone [Dilaudid] Allergy Unknown Rash Verified 05/12/20 00:17 piperacillin [Zosyn] Allergy Unknown Rash Verified 05/12/20 00:17 tazobactam [Zosyn] Allergy Unknown Rash Verified 05/12/20 00:17 metoclopramide [From REGLAN] AdvReac Intermediate ANXIETY Verified 05/12/20 00:17 From ZOSYN Allergy Mild RASH Uncoded 05/12/20 00:17 Latex Allergy Mild Rash Uncoded 05/12/20 00:17 latex Allergy Mild Rash Uncoded 05/12/20 00:17 From DILAUDID AdvReac Mild RASH - Uncoded 04/19/20 17:51 TREAT WITH BENADRYL Review of Systems Review of Systems: Constitutional: No Fever, No Chills ENT/Mouth: No sore throat, No Rhinorrhea, No Swallowing Difficulty Eyes: No Eye Pain, No Swelling, No Redness Cardiovascular: + Chest Pain, + SOB, No Orthopnea, No Edema Respiratory: No Cough, No Sputum, No Wheezing, + dyspnea Gastrointestinal: +Nausea, No Vomiting, No Diarrhea, + abdominal Pain, No Hematochezia, No Melena Genitourinary: No Dysuria, + Urinary Frequency, No Hematuria Musculoskeletal: + joint pain, + Myalgias Skin: No Skin Lesions, No rash Neuro: + Weakness, No Numbness, + Dizziness, + Headache Psych: + Anxiety/Panic, No Depression Heme/Lymph: No Bruising, No Lymphadenopathy Endocrine: No Polyuria, No Polydipsia PMFSH Past Medical History Attestation statement: The following information was validated with the patient. Medical History Hypothyroid Surgical History Liver transplant recipient Social History Social History Alcohol intake: never Smoking Status: Never smoker Use of substances other than those prescribed or required for medical reasons: Yes Substance Use Type: Marijuana Substance Use Frequency: Occasionally Advance Directives: No Advance Directives Information Provided: No Physical Exam Vital Signs: Vital Signs: Last Vital Signs Temp 97.9 F 12/20/20 12:00 Pulse 135 H 12/20/20 14:16 Resp 18 12/20/20 12:00 BP 135/85 12/20/20 14:16 Pulse Ox 100 12/20/20 12:00 Body Mass Index 24.2 Appearance: Alert. Oriented X3. No acute distress. Head/Neck: atraumatic, normocephalic. no cervical spinal tenderness. discomfort with rotation to the left and right. soft tissue tenderness bilaterally in her neck. Eyes: Pupils equal, round and reactive to light. EOMI, no nystagmus ENT: Pharynx normal. Neck: Normal inspection. Neck supple. CVS: tachycardic, regular rhythm, Pulses normal. Respiratory: No respiratory distress. Breath sounds normal. Abdomen: Well healed surgical scar in RUQ, Soft and nontender. +BS x4 Skin: Skin warm and dry. Normal skin color. Normal skin turgor. No rashes. Extremities: No lower extremity edema. Tender calves and quadriceps muscles. Neuro: Oriented X 3. No motor deficit. No sensory deficit. Exam is limited due to lightheadedness. Speaks in complete sentences. Unable to assess gait. Course Course Course Narrative: 35 y/o female with history of liver transplant, anxiety/depression, hypothyroidism, HTN who presents to the ED with multiple complaints including lightheadedness and palpitations for the last 24-48 hours. Tachycardic 140s on arrival with BP 130/80's. She is symptomatic and cannot sit up without being very lightheaded and weak. She is dyspneic when speaking and c/o neck pain. Concern for possible PE. EKG, CXR, labs including DDIMER and troponin are ordered. Orthostatic VS ordered. Dispo pending results and improvement. Reevaluation(s) Reevaluation #1: CXR negative. Troponin negtive. DDIMER elevated in the 900's - CTA ordered to r/o PE. Given 1L IVF with persistent tachycardia and lightheadedness. 2nd liter ordered. Pain back after 1st dose of Morphine, additional dose ordered. Reevaluation #2: Orthostatics are negative, however she was unable to stand up given her feels of lightheadedness and SOB upon sitting. CTA negative for PE. Utox is positive for opiates and amphetamines - she reports having a Rx for vicoden and adderall both of which she took this morning. She denies possibility of withdrawal. She continues to be tachycardic 120s at rest and lightheaded when sitting. Possible postural orthostatic tachycardia syndrome. Will need to get admitted to the hospital for further workup and management. MDM - Syncope Differential Diagnosis Differential diagnosis: Likely syncope due to orthostatic hypotension, vasovagal syncope, pulmonary embolism and dehydration Medical Records Attestation: I reviewed the patient's medical records. Lab Data Attestation: I reviewed the patient's lab results. Result diagrams: 12/20/20 10:48 12/20/20 10:48 Labs: Lab Results 12/20/20 12/20/20 12/20/20 Range/Units 10:48 10:48 10:48 WBC 6.8 (4.8-10.8) X10*3/uL RBC 4.79 (4.20-5.50) X10*6/uL Hgb 14.0 (12.0-16.0) g/dl Hct 40.3 (37-47) % MCV 84.1 (80-98) fL MCH 29.2 (27.0-33.0) pg MCHC 34.7 (31.0-35.0) g/dl RDW 12.0 (11.0-16.0) % Plt Count 184 (160-400) X10*3/uL MPV 11.1 (9.4-12.3) fL Immature Gran % (Auto) 0.1 (0.0-0.4) % Neut % (Auto) 54.2 (45-73) % Lymph % (Auto) 32.2 (20-40) % Schley % (Auto) 11.9 H (2-11) % Eos % (Auto) 1.5 (0-4) % Baso % (Auto) 0.1 (0-2) % Lymph # (Auto) 2.2 (1.2-4.9) X10*3/uL Schley # (Auto) 0.8 (0.1-1.2) X10*3/uL Eos # (Auto) 0.1 (0.0-0.4) X10*3/uL Baso # (Auto) 0.0 (0.0-0.2) X10*3/uL Abs Immat Gran (auto) 0.01 (0.00-0.03) X10*3/uL Absolute Neuts (auto) 3.7 (2.0-8.3) X10*3/uL Absolute Nucleated RBC 0.000 (0.0-0.012) X10*3/uL Nucleated RBC % (auto) 0.0 (0.0-0.2) /100WBC D-Dimer 961 NG/ML Hold Blue Top SEE NOTE Sodium 138 (135-145) mmol/L Potassium 3.3 D (3.3-5.1) mmol/L Chloride 107 (96-108) mmol/L Carbon Dioxide 24 (22-29) mmol/L Anion Gap 10 L (12-20) BUN 8 L (9-16) mg/dL Creatinine 0.77 (0.5-1.4) mg/dL Estim Creat Clear Calc 92.6 Estimated GFR > 60 Random Glucose 91 (60-115) mg/dL Lactic Acid (0.5-2.0) mmol/L Calcium 9.8 (8.4-10.2) mg/dL Magnesium 1.7 (1.6-2.6) mg/dL Total Bilirubin 1.2 H (0.0-1.0) mg/dL Direct Bilirubin 0.5 (0.0-0.5) mg/dL AST 17 (5-31) U/L ALT 21 (0-31) U/L Alkaline Phosphatase 64 (39-117) U/L Troponin I High Sens (<3.5-17.0) ng/L Total Protein 7.7 (6.5-8.0) g/dL Albumin 4.5 (3.5-5.0) g/dL TSH 1.82 (0.32-4.0) uIU/mL Thyroxine (T4) 10.4 (4.5-12.0) ug/dL Urine Color Urine Appearance Urine pH (5.0-8.0) Ur Specific [place] (1.005-1.025) Urine Protein (NEG-TRACE) MG/DL Urine Glucose (UA) (NEG) MG/DL Urine Ketones (NEG) MG/DL Urine Blood (NEG) Urine Nitrite (NEG) Ur Leukocyte Esterase (NEG) Urine RBC (0) /HPF Urine WBC (0-4) /HPF Ur Squamous Epith Cells /LPF Urine Bacteria /LPF Urine Test (NEGATIVE) Urine Opiates Screen (Not Detect) Ur Barbiturates Screen (Not Detect) Ur Phencyclidine Scrn (Not Detect) Ur Amphetamines Screen (Not Detect) U Benzodiazepines Scrn (Not Detect) Urine Cocaine Screen (Not Detect) U Marijuana (THC) Screen (Not Detect) Ethyl Alcohol mg/dL 12/20/20 12/20/20 12/20/20 Range/Units 10:48 10:48 11:37 WBC (4.8-10.8) X10*3/uL RBC (4.20-5.50) X10*6/uL Hgb (12.0-16.0) g/dl Hct (37-47) % MCV (80-98) fL MCH (27.0-33.0) pg MCHC (31.0-35.0) g/dl RDW (11.0-16.0) % Plt Count (160-400) X10*3/uL MPV (9.4-12.3) fL Immature Gran % (Auto) (0.0-0.4) % Neut % (Auto) (45-73) % Lymph % (Auto) (20-40) % Schley % (Auto) (2-11) % Eos % (Auto) (0-4) % Baso % (Auto) (0-2) % Lymph # (Auto) (1.2-4.9) X10*3/uL Schley # (Auto) (0.1-1.2) X10*3/uL Eos # (Auto) (0.0-0.4) X10*3/uL Baso # (Auto) (0.0-0.2) X10*3/uL Abs Immat Gran (auto) (0.00-0.03) X10*3/uL Absolute Neuts (auto) (2.0-8.3) X10*3/uL Absolute Nucleated RBC (0.0-0.012) X10*3/uL Nucleated RBC % (auto) (0.0-0.2) /100WBC D-Dimer NG/ML Hold Blue Top Sodium (135-145) mmol/L Potassium (3.3-5.1) mmol/L Chloride (96-108) mmol/L Carbon Dioxide (22-29) mmol/L Anion Gap (12-20) BUN (9-16) mg/dL Creatinine (0.5-1.4) mg/dL Estim Creat Clear Calc Estimated GFR Random Glucose (60-115) mg/dL Lactic Acid (0.5-2.0) mmol/L Calcium (8.4-10.2) mg/dL Magnesium (1.6-2.6) mg/dL Total Bilirubin (0.0-1.0) mg/dL Direct Bilirubin (0.0-0.5) mg/dL AST (5-31) U/L ALT (0-31) U/L Alkaline Phosphatase (39-117) U/L Troponin I High Sens < 3.5 (<3.5-17.0) ng/L Total Protein (6.5-8.0) g/dL Albumin (3.5-5.0) g/dL TSH (0.32-4.0) uIU/mL Thyroxine (T4) (4.5-12.0) ug/dL Urine Color SHRUTI Urine Appearance CLEAR Urine pH 7.5 (5.0-8.0) Ur Specific [place] 1.010 (1.005-1.025) Urine Protein TRACE (NEG-TRACE) MG/DL Urine Glucose (UA) NEG (NEG) MG/DL Urine Ketones NEG (NEG) MG/DL Urine Blood NEG (NEG) Urine Nitrite POS H (NEG) Ur Leukocyte Esterase NEG (NEG) Urine RBC 0 (0) /HPF Urine WBC 0-2 (0-4) /HPF Ur Squamous Epith Cells TRACE /LPF Urine Bacteria TRACE /LPF Urine Test (NEGATIVE) Urine Opiates Screen (Not Detect) Ur Barbiturates Screen (Not Detect) Ur Phencyclidine Scrn (Not Detect) Ur Amphetamines Screen (Not Detect) U Benzodiazepines Scrn (Not Detect) Urine Cocaine Screen (Not Detect) U Marijuana (THC) Screen (Not Detect) Ethyl Alcohol < 10 mg/dL 12/20/20 12/20/20 12/20/20 Range/Units 11:37 11:37 15:09 WBC (4.8-10.8) X10*3/uL RBC (4.20-5.50) X10*6/uL Hgb (12.0-16.0) g/dl Hct (37-47) % MCV (80-98) fL MCH (27.0-33.0) pg MCHC (31.0-35.0) g/dl RDW (11.0-16.0) % Plt Count (160-400) X10*3/uL MPV (9.4-12.3) fL Immature Gran % (Auto) (0.0-0.4) % Neut % (Auto) (45-73) % Lymph % (Auto) (20-40) % Schley % (Auto) (2-11) % Eos % (Auto) (0-4) % Baso % (Auto) (0-2) % Lymph # (Auto) (1.2-4.9) X10*3/uL Schley # (Auto) (0.1-1.2) X10*3/uL Eos # (Auto) (0.0-0.4) X10*3/uL Baso # (Auto) (0.0-0.2) X10*3/uL Abs Immat Gran (auto) (0.00-0.03) X10*3/uL Absolute Neuts (auto) (2.0-8.3) X10*3/uL Absolute Nucleated RBC (0.0-0.012) X10*3/uL Nucleated RBC % (auto) (0.0-0.2) /100WBC D-Dimer NG/ML Hold Blue Top Sodium (135-145) mmol/L Potassium (3.3-5.1) mmol/L Chloride (96-108) mmol/L Carbon Dioxide (22-29) mmol/L Anion Gap (12-20) BUN (9-16) mg/dL Creatinine (0.5-1.4) mg/dL Estim Creat Clear Calc Estimated GFR Random Glucose (60-115) mg/dL Lactic Acid 1.0 (0.5-2.0) mmol/L Calcium (8.4-10.2) mg/dL Magnesium (1.6-2.6) mg/dL Total Bilirubin (0.0-1.0) mg/dL Direct Bilirubin (0.0-0.5) mg/dL AST (5-31) U/L ALT (0-31) U/L Alkaline Phosphatase (39-117) U/L Troponin I High Sens (<3.5-17.0) ng/L Total Protein (6.5-8.0) g/dL Albumin (3.5-5.0) g/dL TSH (0.32-4.0) uIU/mL Thyroxine (T4) (4.5-12.0) ug/dL Urine Color Urine Appearance Urine pH (5.0-8.0) Ur Specific [place] (1.005-1.025) Urine Protein (NEG-TRACE) MG/DL Urine Glucose (UA) (NEG) MG/DL Urine Ketones (NEG) MG/DL Urine Blood (NEG) Urine Nitrite (NEG) Ur Leukocyte Esterase (NEG) Urine RBC (0) /HPF Urine WBC (0-4) /HPF Ur Squamous Epith Cells /LPF Urine Bacteria /LPF Urine Test NEGATIVE (NEGATIVE) Urine Opiates Screen POSITIVE H (Not Detect) Ur Barbiturates Screen Not Detected (Not Detect) Ur Phencyclidine Scrn Not Detected (Not Detect) Ur Amphetamines Screen POSITIVE H (Not Detect) U Benzodiazepines Scrn Not Detected (Not Detect) Urine Cocaine Screen Not Detected (Not Detect) U Marijuana (THC) Screen Not Detected (Not Detect) Ethyl Alcohol mg/dL ECG Data Attestation: I personally reviewed and interpreted this ECG as follows: ECG interpretation date: 12/20/20 ECG interpretation time: 14:34 Interpretation: sinus tachycardia, HR 112 bpm, normal IL interval, nonspecific T wave abnormality Discharge Plan Discharge Clinical Impression: Heart palpitations, Pre-syncope, Sinus tachycardia Patient Disposition: Admitted As Inpatient Prescriptions: No Action ondansetron HCl [Zofran] 4 mg Tablet 4 mg PO Q8H PRN (Reason: Nausea) RF: 0 amlodipine 5 mg Tablet 5 mg PO DAILY RF: 0 citalopram [Celexa] 20 mg Tablet 20 mg PO DAILY RF: 0 citalopram [Celexa] 20 mg Tablet 10 mg PO BEDTIME RF: 0 levothyroxine 50 mcg Tablet 50 mcg PO DAILY@0600 RF: 0 ursodiol 300 mg Capsule 300 mg PO BID RF: 0 docusate sodium [Colace] 100 mg Capsule 200 mg PO BID PRN (Reason: Constipation) RF: 0 omeprazole 20 mg Capsule,Delayed Release(Dr/Ec) 20 mg PO DAILY PRN (Reason: Acid Reflux) RF: 0 lorazepam 1 mg Tablet 0.5 - 1 mg PO TID PRN (Reason: Anxiety) RF: 0 tacrolimus 1 mg Capsule 2 mg PO BID RF: 0 dextroamphetamine-amphetamine [Adderall] 10 mg Tablet 20 mg PO DAILY RF: 0 dextroamphetamine-amphetamine [Adderall] 10 mg Tablet 10 mg PO DAILY@1400 RF: 0 hydrocodone-acetaminophen 5-325 mg Tablet 1 tab PO BID PRN (Reason: Pain (Scale Score 4-6)) RF: 0 lidocaine 5 % Adhesive Patch,Medicated 1 patch TOPICAL DAILY RF: 0 Linzess 145 mcg Capsule 145 mcg PO DAILY RF: 0
[2020-12-20 10:58] LABS: MANUAL DIFF FLAG NO
[2020-12-20] MEDS: 0.9 % Sodium Chloride 1,000 ML 999 ML IVCONT ×2 (11:00→13:18)
[2020-12-20 11:02] LABS: Basophils Percent Auto 0.1 % (0-2); Eosinophils Absolute Auto 0.1 X10*3/uL (0.0-0.4); Eosinophils Percent Auto 1.5 % (0-4); Hematocrit 40.3 % (37-47); Imm Gran Abs Auto 0.01 X10*3/uL (0.00-0.03); Imm Gran Pct Auto 0.1 % (0.0-0.4); Lymphocytes Absolute Auto 2.2 X10*3/uL (1.2-4.9); Lymphocytes Percent Auto 32.2 % (20-40); Mean Corpuscular HGB Conc 34.7 g/dl (31.0-35.0); Mean Corpuscular Hemoglobin 29.2 pg (27.0-33.0); Mean Corpuscular Volume 84.1 fL (80-98); Mean Platelet Volume 11.1 fL (9.4-12.3); Monocytes Absolute Auto 0.8 X10*3/uL (0.1-1.2); Monocytes Percent Auto 11.9 % (2-11); Neutrophils Absolute Auto 3.7 X10*3/uL (2.0-8.3); Neutrophils Percent Auto 54.2 % (45-73); Platelet Count 184 X10*3/uL (160-400); Red Blood Count 4.79 X10*6/uL (4.20-5.50); White Blood Count 6.8 X10*3/uL (4.8-10.8)
[2020-12-20] MEDS: diphenhydrAMINE HCL 50 MG/ML VIAL 12.5 MG IVPUSH (11:02)
[2020-12-20] MEDS: Morphine Sulfate 4 MG/ML CARTRIDGE IVPUSH ×3 (11:06→21:49)
[2020-12-20 11:16] LABS: D Dimer 961 NG/ML
[2020-12-20 11:19] LABS: Ethanol < 10 mg/dL
[2020-12-20 11:23] LABS: Alanine Aminotransferase 21 U/L (0-31); Albumin Level 4.5 g/dL (3.5-5.0); Alkaline Phosphatase 64 U/L (39-117); Anion Gap 10 (12-20); Aspartate Amino Transferase 17 U/L (5-31); Bilirubin Direct 0.5 mg/dL (0.0-0.5); Bilirubin Total 1.2 mg/dL (0.0-1.0); Blood Urea Nitrogen 8 mg/dL (9-16); Calcium 9.8 mg/dL (8.4-10.2); Carbon Dioxide 24 mmol/L (22-29); Chloride 107 mmol/L (96-108); Creatinine Clr Calc Pharmacy 92.6; Estimated Glomerular Filt Rate > 60; Glucose Random 91 mg/dL (60-115); Magnesium 1.7 mg/dL (1.6-2.6); Potassium 3.3 mmol/L (3.3-5.1); Sodium 138 mmol/L (135-145); Total Protein 7.7 g/dL (6.5-8.0)
[2020-12-20 11:27] LABS: Troponin-I High Sensitivity < 3.5 ng/L (<3.5-17.0)
--- NOTE | 2020-12-20 11:49 | PC.NURSE ---
Pt reports mild dizziness with positional change, assisted with bedpan. Reports some relief of pain s/p medication
[2020-12-20 11:53] LABS: Glucose Urine UA NEG (NEG); Leukocyte Esterase Urine NEG (NEG); Nitrite Urine POS (NEG); PH 7.5 (5.0-8.0); UACC Culture Trigger YES; Urine Blood NEG (NEG); Urine Ketones NEG (NEG); Urine Protein TRACE MG/DL (NEG-TRACE)
[2020-12-20 11:54] LABS: Appearance Urine CLEAR; Color Urine AMBER
[2020-12-20 11:55] LABS: UPreg QC Valid YES; Urine Pregnancy NEGATIVE (NEGATIVE)
[2020-12-20 12:04] LABS: Bacteria Urine TRACE /LPF; RBC Urine 0 /HPF (0); Squamous Epithelial Cell Urine TRACE /LPF; WBC Urine 0-2 /HPF (0-4)
[2020-12-20 12:20] LABS: TSH reflex Free T4 1.82 uIU/mL (0.32-4.0)
[2020-12-20] MEDS: iohexoL 350 MG/ML 100 ML INFUS..BTL IV (12:21)
[2020-12-20 12:31] LABS: Amphetamine Screen Urine POSITIVE (Not Detect); Barbiturates, Urine Not Detected (Not Detect); Benzodiazepines Screen Urine Not Detected (Not Detect); Cannabinoid Screen Urine Not Detected (Not Detect); Cocaine Screen Urine Not Detected (Not Detect); Opiate Screen Urine POSITIVE (Not Detect); Phencyclidine Screen Urine Not Detected (Not Detect)
[2020-12-20 12:44] LABS: T4 Thyroxine 10.4 ug/dL (4.5-12.0)
[2020-12-20] MEDS: LORazepam 2 MG/ML VIAL 1 MG IVPUSH ×2 (13:11→19:05)
--- NOTE | 2020-12-20 14:28 | PC.NURSE ---
Pt reports lightheadedness with positional changes, unable to remain standing for short amount of time, sinus tach 1102-140s when standing, c/o flutters and palpitations . Provider aware
--- NOTE | 2020-12-20 16:35 | P.HPHOSP_ITS ---
History of Present Illness Date of Service: 12/20/20 Chief Complaint: Dizziness, nausea This is a 35-year-old female with history of liver transplant secondary to Tylenol overdose who presents to the emergency department with multiple complaints. For the past few days patient has been feeling nauseated. Today wh en she woke up she began feeling palpitations, chest tightness and lightheadedness. With minimal movement including sitting or standing she feels that she might pass out. She has not had any episodes loss of consciousness. She has had decreased p.o. intake due to her nausea over the past few days. She reports vague abdominal pain, denies diarrhea. She has complaints of right neck pain, feeling of fullness in her right ear. She has also had tingling of bilateral arms and bilateral legs. She has a history of chronic urinary incontinence and this is unchanged. She does report increased urinary frequency. She denies any dysuria. She denies any fever, chills. She was noted to be tachycardic with a heart rate in the 130s. EKG showed sinus tachycardia. She was afebrile, lab work showed no evidence of anemia. Thyroid function tests were within normal limits. Tox screen was positive for opiates and amphetamines but she has prescription for narcotics as well as Adderall. She denies taking any additional doses or any other drugs. She denies any use of alcohol. She denies any dose adjustments or medication changes recently. She is on Adderall which she has been taking for the past 3 years. D-dimer was 961 and therefore she underwent CTA which showed no evidence of pulmonary embolism. She was treated with multiple doses of pain medication as well as IV fluid in her heart rate has improved somewhat. Given persistent tachycardia with significant symptoms the decision was made to admit her overnight for observation. Review of Systems Review of Systems: Yes all other systems are reviewed and are negative Constitutional: Constitutional: Denies chills and Denies fever(s) ENT: Reports dizziness Cardiovascular: Cardiovascular: Reports palpitations and Denies dyspnea Respiratory: Respiratory: Denies cough and Denies dyspnea Neurologic: Reports dizziness Endocrine: Endocrine: Reports palpitations [facility] Medical History (Updated 12/20/20 @ 16:51 by MILY Gutierres) Anxiety Depression Hypothyroid IBS (irritable bowel syndrome) Functional capacity: independent ambulation Family History Other Cardiomyopathy Surgical History History of cholecystectomy Liver transplant recipient Social History (Updated 12/20/20 @ 16:51 by MILY Gutierres) Alcohol intake: never Smoking Status: Never smoker Use of substances other than those prescribed or required for medical reasons: No Substance Use Frequency: Occasionally Advance Directives: No Advance Directives Information Provided: No Meds Allergies Allergy/AdvReac Type Severity Reaction Status Date / Time latex [Latex] Allergy Intermediate ITCHINESS Verified 05/12/20 00:17 fentanyl [FENTANYL] Allergy Mild RASH Verified 05/12/20 00:17 morphine [MORPHINE] Allergy Mild RASH Verified 05/12/20 00:17 TREATED WITH BENADRYL amoxicillin [Augmentin] Allergy Unknown Rash Verified 05/12/20 00:17 ciprofloxacin Allergy Unknown Rash Verified 05/12/20 00:17 clavulanic acid [Augmentin] Allergy Unknown Rash Verified 05/12/20 00:17 hydromorphone [Dilaudid] Allergy Unknown Rash Verified 05/12/20 00:17 piperacillin [Zosyn] Allergy Unknown Rash Verified 05/12/20 00:17 tazobactam [Zosyn] Allergy Unknown Rash Verified 05/12/20 00:17 metoclopramide [From REGLAN] AdvReac Intermediate ANXIETY Verified 05/12/20 00:17 From ZOSYN Allergy Mild RASH Uncoded 05/12/20 00:17 Latex Allergy Mild Rash Uncoded 05/12/20 00:17 latex Allergy Mild Rash Uncoded 05/12/20 00:17 From DILAUDID AdvReac Mild RASH - Uncoded 04/19/20 17:51 TREAT WITH BENADRYL Active Medications: Current Medications Generic Name Dose Route Start Last Admin Trade Name Freq PRN Reason Stop Dose Admin Docusate Sodium 100 mg 12/20/20 16:22 Docusate Sodium 100 Mg Capsule PO DAILY PRN Constipation Lactated Ringer's 1,000 mls @ 125 mls/hr 12/20/20 16:30 Lr IVCONT .Q8H AMANDA Ketorolac Tromethamine 30 mg 12/20/20 16:22 Ketorolac Tromethamine 30 Mg/Ml Vial IVPUSH 12/20/20 16:23 ONCE ONE Ondansetron HCl 4 mg 12/20/20 16:22 Ondansetron Hcl 4 Mg/2 Ml Vial IVPUSH Q8H PRN Nausea and Vomiting Pharmacy Consult 1 each 12/20/20 14:40 Consult Rx Perform Med Rec MISCELLANE ONCE PRN Consult order Sodium Chloride 3 ml 12/21/20 00:00 0.9 % Sodium Chloride Flush 3 Ml Syringe [facility] Medications Medication Instructions Recorded Confirmed Last Taken Type amlodipine 5 mg PO DAILY 11/12/20 12/20/20 12/19/20 History citalopram [Celexa] 10 mg PO BEDTIME 11/12/20 12/20/20 12/19/20 History citalopram [Celexa] 20 mg PO DAILY 11/12/20 12/20/20 12/19/20 History docusate sodium [Colace] 200 mg PO BID PRN 11/12/20 12/20/20 Unknown History levothyroxine 50 mcg PO DAILY@0600 11/12/20 12/20/20 12/19/20 History lorazepam 0.5 - 1 mg PO TID PRN 11/12/20 12/20/20 Unknown History omeprazole 20 mg PO DAILY PRN 11/12/20 12/20/20 11/12/20 History ondansetron HCl [Zofran] 4 mg PO Q8H PRN 11/12/20 12/20/20 Unknown History tacrolimus 2 mg PO BID 11/12/20 12/20/20 12/19/20 History ursodiol 300 mg PO BID 11/12/20 12/20/20 12/19/20 History dextroamphetamine-amphetamine 10 mg PO DAILY@1400 12/20/20 12/20/20 Unknown History [Adderall] dextroamphetamine-amphetamine 20 mg PO DAILY 12/20/20 12/20/20 12/20/20 History [Adderall] hydrocodone-acetaminophen 1 tab PO BID PRN 12/20/20 12/20/20 Unknown History lidocaine 1 patch TOPICAL DAILY 12/20/20 12/20/20 Unknown History linaclotide [Linzess] 145 mcg PO DAILY 12/20/20 12/20/20 Unknown History Physical Exam Vital Signs and Narrative: Vital Signs: Last Vital Signs Temp 97.9 F 12/20/20 12:00 Pulse 135 H 12/20/20 14:16 Resp 18 12/20/20 12:00 BP 135/85 12/20/20 14:16 Pulse Ox 100 12/20/20 12:00 Body Mass Index 24.2 Const: General: healthy appearing, comfortable, no acute distress, alert and awake Nutritional Appearance: well nourished Orientation/consciousness: patient oriented x3 HENMT: Head: Yes normocephalic and Yes atraumatic Eyes: Sclerae: sclerae normal Chest: Chest palpation & inspection: normal inspection of the chest Resp: Effort & Inspection: normal respiratory effort and no respiratory distress Auscultation: clear to auscultation bilaterally Cardio: Rate: tachycardic Rhythm: regular rhythm GI: Palpation (GI): Soft to palpation and nontender Neuro: General: patient oriented x3 Cranial nerves: Yes CN's II-XII intact bilaterally and Yes Bilaterally intact EOM present Extrem: General: Yes normal to inspection Results Labs CBC and Chem 7: 12/20/20 10:48 12/20/20 10:48 Labs: Laboratory Results - last 24 hr 12/20/20 12/20/20 12/20/20 10:48 10:48 10:48 MCV 84.1 MCH 29.2 MCHC 34.7 RDW 12.0 Plt Count 184 MPV 11.1 Immature Gran % (Auto) 0.1 Neut % (Auto) 54.2 Lymph % (Auto) 32.2 Gilliam % (Auto) 11.9 H Eos % (Auto) 1.5 Baso % (Auto) 0.1 Lymph # (Auto) 2.2 Gilliam # (Auto) 0.8 Eos # (Auto) 0.1 Baso # (Auto) 0.0 Abs Immat Gran (auto) 0.01 Absolute Neuts (auto) 3.7 Absolute Nucleated RBC 0.000 Nucleated RBC % (auto) 0.0 D-Dimer 961 Hold Blue Top SEE NOTE Anion Gap 10 L Estim Creat Clear Calc 92.6 Estimated GFR > 60 Random Glucose 91 Lactic Acid Calcium 9.8 Magnesium 1.7 Total Bilirubin 1.2 H Direct Bilirubin 0.5 AST 17 ALT 21 Alkaline Phosphatase 64 Troponin I High Sens Total Protein 7.7 Albumin 4.5 TSH 1.82 Thyroxine (T4) 10.4 Urine Color Urine Appearance Urine pH Ur Specific [place] Urine Protein Urine Glucose (UA) Urine Ketones Urine Blood Urine Nitrite Ur Leukocyte Esterase Urine RBC Urine WBC Ur Squamous Epith Cells Urine Bacteria Urine Test Urine Opiates Screen Ur Barbiturates Screen Ur Phencyclidine Scrn Ur Amphetamines Screen U Benzodiazepines Scrn Urine Cocaine Screen U Marijuana (THC) Screen Ethyl Alcohol 12/20/20 12/20/20 12/20/20 10:48 10:48 11:37 MCV MCH MCHC RDW Plt Count MPV Immature Gran % (Auto) Neut % (Auto) Lymph % (Auto) Gilliam % (Auto) Eos % (Auto) Baso % (Auto) Lymph # (Auto) Gilliam # (Auto) Eos # (Auto) Baso # (Auto) Abs Immat Gran (auto) Absolute Neuts (auto) Absolute Nucleated RBC Nucleated RBC % (auto) D-Dimer Hold Blue Top Anion Gap Estim Creat Clear Calc Estimated GFR Random Glucose Lactic Acid Calcium Magnesium Total Bilirubin Direct Bilirubin AST ALT Alkaline Phosphatase Troponin I High Sens < 3.5 Total Protein Albumin TSH Thyroxine (T4) Urine Color SHRTUI Urine Appearance CLEAR Urine pH 7.5 Ur Specific [place] 1.010 Urine Protein TRACE Urine Glucose (UA) NEG Urine Ketones NEG Urine Blood NEG Urine Nitrite POS H Ur Leukocyte Esterase NEG Urine RBC 0 Urine WBC 0-2 Ur Squamous Epith Cells TRACE Urine Bacteria TRACE Urine Test Urine Opiates Screen Ur Barbiturates Screen Ur Phencyclidine Scrn Ur Amphetamines Screen U Benzodiazepines Scrn Urine Cocaine Screen U Marijuana (THC) Screen Ethyl Alcohol < 10 12/20/20 12/20/20 12/20/20 11:37 11:37 15:09 MCV MCH MCHC RDW Plt Count MPV Immature Gran % (Auto) Neut % (Auto) Lymph % (Auto) Gilliam % (Auto) Eos % (Auto) Baso % (Auto) Lymph # (Auto) Gilliam # (Auto) Eos # (Auto) Baso # (Auto) Abs Immat Gran (auto) Absolute Neuts (auto) Absolute Nucleated RBC Nucleated RBC % (auto) D-Dimer Hold Blue Top Anion Gap Estim Creat Clear Calc Estimated GFR Random Glucose Lactic Acid 1.0 Calcium Magnesium Total Bilirubin Direct Bilirubin AST ALT Alkaline Phosphatase Troponin I High Sens Total Protein Albumin TSH Thyroxine (T4) Urine Color Urine Appearance Urine pH Ur Specific [place] Urine Protein Urine Glucose (UA) Urine Ketones Urine Blood Urine Nitrite Ur Leukocyte Esterase Urine RBC Urine WBC Ur Squamous Epith Cells Urine Bacteria Urine Test NEGATIVE Urine Opiates Screen POSITIVE H Ur Barbiturates Screen Not Detected Ur Phencyclidine Scrn Not Detected Ur Amphetamines Screen POSITIVE H U Benzodiazepines Scrn Not Detected Urine Cocaine Screen Not Detected U Marijuana (THC) Screen Not Detected Ethyl Alcohol Imaging Radiologist's Impressions: Impressions Chest X-Ray 12/20/20 10:47 IMPRESSION: Unremarkable chest exam. Chest CTA 12/20/20 11:19 IMPRESSION: 1. No pulmonary embolism. No thoracic aortic dissection. 2. Lungs clear. No pneumothorax, airspace consolidation, or effusion. VTE: negative Assessment and Plan (1) Heart palpitations: Status: Acute (2) Sinus tachycardia: Status: Acute This is a 35-year-old female with history of Tylenol overdose status post liver transplant in 2008, anxiety, depression, IBS, hypothyroidism who presents to the emergency department with dizziness, lightheadedness, palpitations found to have sinus tachycardia Sinus tachycardia Possibly related to dehydration in the setting of decreased p.o. intake secondary to nausea Thyroid function within normal limits, no anemia, afebrile, CTA negative for PE -tele monitoring -IV fluid -if no improvement will consider echocardiogram given family history of cardiomyopathy Dizziness/lightheaded Unable to complete orthostatics due to symptoms Tachycardia/dehydration likely contributing -IV fluid Neck pain No midline tenderness, seems to be musculoskeletal pt declining nsaids, requesting IV narcotics. received 2 doses of morphine in ED -will treat symptomatically -continue home dose Percocet -Lidoderm patch Chronic pain -Continue home dose of hydrocodone/acetominphen h/o Liver transplant Bilirubin 1.2 otherwise liver function within normal limits -continue Prograf Mood -continue Lexapro Hypothyroidism Thyroid function within normal limits -continue levothyroxine Hypertension Blood pressure controlled -continue Norvasc DVT prophylaxis-mechanical devices Code status-full code Attending-Dr. Montes De Oca
--- NOTE | 2020-12-20 17:10 | PC.NURSE ---
Pt requesting pain medication, offered toradol and ordered PRNS. Pt declined, asking to speak to hospitalist. Hospialist contacted. Pt agitated, states Im not one of those heroin addicts roaming the hallways, I'm in pain and I need something else. Pt appears very anxious, offered Ativan and is accepting.
--- NOTE | 2020-12-20 17:22 | PC.NURSE ---
Patient requesting ativan, this RN went to administer the patients PRN PO ativan. Patient refused PO ativan and expressed that she wanted IV ativan which she received earlier. This RN explained the admission protocol and that the admitting physician was responsible for her inpatient medications and that they may be different in administration versus what she has received in the ER. Patient still refusing PO ativan and insisting on speaking to the admitting physician. Provider aware.
--- NOTE | 2020-12-20 17:36 | PC.NURSE ---
Addendum entered by Mary Nichols 12/20/20 17:37: Pt declining scheduled fluids, I dont want anything else...I dont know if I can trust this doctors judgment. I want to wait until she comes down to speak to me Original Note: Pt now accepting of Ativan, given per emar. Pt offered and accepted dinner tray. Awaiting arrival of hospitalist. Mother at bedside.
[2020-12-20] MEDS: LORazepam 1 MG TABLET PO (17:38)
--- NOTE | 2020-12-20 18:47 | PC.NURSE ---
Late entry- Pt found to appear very anxious, distraught, hyperventilating, in position on stretcher after speaking with Dr. Montes De Oca. Pt reports He is not listening...I don't want that doctor back in my room, I need someone else .Pt requesting IV pain medication, continues to decline PO medications or patches. Pt medicated per emar w/ IV dilaudid and ativan. Pt incont of urine. Pt up to bedside chair w/ steady gait, linen changed, korey devlin provided, pt back into bed. Requested and given ice water, environmental stimuli decreased. Plan for Dr. Elizondo to eval pt, pending room assignment.
[2020-12-20] MEDS: HYDROmorphone HCl 0.5 MG/0.5 ML SYRINGE IVPUSH (19:04)
--- NOTE | 2020-12-20 19:06 | PM.EVENT ---
Event Note Date of Service: 12/20/20 Event Note: Patient was seen by APC this late afternoon: Patient mother at bedside: Staff had notified that patient keep insisting for opioid IV, refuses to take IV fluids and her po pain meds. A try to discussed with the patient and her mother that we 1st have to evaluate patient before prescribing opoids and get more information about her current symptoms -but instead of giving information the patient started to get agitated, insisiting tahat she wants iv morphine only , Tried to explain to her again-she starting yelling and Becoming more tachycardic and appears to be in panic-like symptoms, and started saying aggressive words and abusive. she also refuses to take her home meds -hydrocodone/tyelnol , lidocaine . Discussed with the staff patient has these behavior earlier also in ed. Patient refused physical exam for now. we added iv ativan 1 mg x1 for panic symtpoms , also 1 small dose 0.5 mg dilaudid added night staff will follow up on her .
--- NOTE | 2020-12-20 21:45 | PC.NURSE ---
Report given to [place] wong [facility]. Pharmacy called to bring medication to floor, pending pt transport
[2020-12-20] MEDS: diphenhydrAMINE HCL 50 MG/ML VIAL 25 MG IVPUSH (21:49)
[2020-12-20] MEDS: UrsodioL 300 MG CAPSULE PO (23:04)
[2020-12-20] MEDS: Escitalopram Oxalate 5 MG TABLET PO (23:04)
[2020-12-20] MEDS: Tacrolimus 1 MG CAPSULE 2 MG PO (23:04)
[2020-12-20] MEDS: Lactated Ringers 1,000 ML 125 ML IVCONT (23:20)
--- NOTE | 2020-12-20 23:41 | PM.EVENT ---
Event Note Date of Service: 12/21/20 Event Note: pt seen and examined at bedside. Spent over 30 mins discussing her complaints, as well as her symptoms. She reported pain in the neck that was more severe than her baseline. She reports the pain is 10/10 starting at the baseline of her neck, radiating to the ears bilaterally, as well as to the neck. she is also stating that for the past 1 weak she has been having generalized weakness, low oral intake, fatigue, palpitations, as well as urinary symptoms including frequency. She denies any fever or chills, no lower extremity edema. Pt is also asking for around the clock morphine as well as iv ativan. and benadryl which is concerning behavior. Physical exam: reveals swelling around the neck with no tenderness, ear exam shows no abnormality,. pt tachycardic regular rhythm. Will obtain soft tissue CT scan of the neck given the pain as well as swelling
[2020-12-21] MEDS: LORazepam 1 MG TABLET PO ×2 (00:41→08:23)
[2020-12-21] MEDS: Morphine Sulfate 4 MG/ML CARTRIDGE IVPUSH ×3 (02:03→18:11)
[2020-12-21 03:38] VITALS: PULSE 109; RESP 18
[2020-12-21] MEDS: Levothyroxine Sodium 50 MCG TABLET PO (06:49)
[2020-12-21 07:38] VITALS: BP 114/73; PULSE 98; RESP 20; TEMP 37.2; O2SAT 96
[2020-12-21] MEDS: Lactated Ringers 1,000 ML 125 ML IVCONT (08:11)
[2020-12-21] MEDS: Lidocaine 4 % Patch ADH..PATCH 1 PATCH TRANSDERMA (08:21)
[2020-12-21] MEDS: amLODIPine Besylate 5 MG TABLET PO (08:22)
[2020-12-21] MEDS: Tacrolimus 1 MG CAPSULE 2 MG PO (08:22)
[2020-12-21] MEDS: Escitalopram Oxalate 10 MG TABLET PO (08:22)
[2020-12-21] MEDS: UrsodioL 300 MG CAPSULE PO (08:23)
--- NOTE | 2020-12-21 09:42 | MHC.CM.PN ---
met with pt who explins mthat she does see a therapist and will be able to self arrange her own transport home cm intervention is not indicated
[2020-12-21 10:50] LABS: Alanine Aminotransferase 20 U/L (0-31); Albumin Level 4.4 g/dL (3.5-5.0); Alkaline Phosphatase 64 U/L (39-117); Aspartate Amino Transferase 20 U/L (5-31); Bilirubin Direct 0.6 mg/dL (0.0-0.5); Bilirubin Total 1.8 mg/dL (0.0-1.0); Total Protein 7.6 g/dL (6.5-8.0)
[2020-12-21 12:00] VITALS: BP 121/75; PULSE 111; RESP 20; TEMP 36.5; O2SAT 97
--- NOTE | 2020-12-21 12:02 | MHC.CM.PN ---
per rounds pt expected to be dcd today
--- NOTE | 2020-12-21 12:25 | P.EN_ITS ---
Event Note Date of Service: 12/21/20 Event Note: Day Team Note in Brief Patient seen and examined this AM with patients RN this AM. I asked her how she was feeling to which she immediately stated that I am not thinking correctly right now, can you talk to my health proxy (her Mother). Had a lengthy discussion with her mother Alida Espitia @ [phone] who was very upset with some of the care Katherine had received, but also complimented the hospital on other aspects of her care. She told me about her transplant at [facility] and reported to me that she had been on contact with her team there. She was concerned over Katherine's tachycardia due to a family history history of heart disease in her father. She gave me the telephone # of her Psychiatrist with the [facility] transplant team, whom I spoke with on the phone. Dr. Schneider recommended that I reach out to the transfer department at [facility] to arrange for transfer. Prior to me calling the transfer department, Alida called back and was upset that we had not taken her off the component technician. (I had discussed this with Alida but she was quiet upset because it was not removed immediately). She was also upset that her daughter did not have any pain medications order, but I reassured her that she had a standing order for PRN pain and anxiety medications ordered. I informed her of the my conversation with Dr. Schneider about contacting the Transfer department @ [facility]. At this time, she requested that I wait to call them, because she will be coming in to speak with me and will provide the appropriate numbers. Will await for her mother to come in person and proceed with her wishes on the care of her daughter.
[2020-12-21 13:46] LABS: INTERNATIONAL NORM RATIO 1.1 (0.9-1.1); Prothrombin Time 12.8 SEC (10.8-13.0)
[2020-12-21 14:14] LABS: Ammonia 39 umol/L (13-55)
[2020-12-21 14:25] LABS: COVID-19 Test Negative (Negative); IDNOW Serial# 9DD0AD1C
--- NOTE | 2020-12-21 14:50 | P.DS_ITS ---
DS: Providers Provider Date of Service: 12/21/20 Date of admission: 12/20/20 16:22 Primary care physician: Rick Davenport MD DS: Diagnosis Discharge Diagnosis (1) Heart palpitations: Status: Acute (2) Sinus tachycardia: Status: Acute (3) Intractable pain: Status: Acute (4) Elevated bilirubin: Status: Acute (5) History of liver transplant: Status: Acute DS: Medications Discharge Medications Home Medications: Home Medications Medication Instructions Recorded Confirmed amlodipine 5 mg PO DAILY 11/12/20 12/20/20 citalopram [Celexa] 10 mg PO BEDTIME 11/12/20 12/20/20 citalopram [Celexa] 20 mg PO DAILY 11/12/20 12/20/20 docusate sodium [Colace] 200 mg PO BID PRN 11/12/20 12/20/20 levothyroxine 50 mcg PO DAILY@0600 11/12/20 12/20/20 lorazepam 0.5 - 1 mg PO TID PRN 11/12/20 12/20/20 omeprazole 20 mg PO DAILY PRN 11/12/20 12/20/20 ondansetron HCl [Zofran] 4 mg PO Q8H PRN 11/12/20 12/20/20 tacrolimus 2 mg PO BID 11/12/20 12/20/20 ursodiol 300 mg PO BID 11/12/20 12/20/20 Linzess 145 mcg PO DAILY 12/20/20 12/20/20 dextroamphetamine-amphetamine 10 mg PO DAILY@1400 12/20/20 12/20/20 [Adderall] dextroamphetamine-amphetamine 20 mg PO DAILY 12/20/20 12/20/20 [Adderall] hydrocodone-acetaminophen 1 tab PO BID PRN 12/20/20 12/20/20 lidocaine 1 patch TOPICAL DAILY 12/20/20 12/20/20 DS: Summary Hospital Course Hospital Course: From the admission H&P: This is a 35-year-old female with history of liver transplant secondary to Tylenol overdose who presents to the emergency department with multiple complaints. For the past few days patient has been feeling nauseated. Today when she woke up she began feeling palpitations, chest tightness and lightheadedness. With minimal movement including sitting or standing she feels that she might pass out. She has not had any episodes loss of consciousness. She has had decreased p.o. intake due to her nausea over the past few days. She reports vague abdominal pain, denies diarrhea. She has complaints of right neck pain, feeling of fullness in her right ear. She has also had tingling of bilateral arms and bilateral legs. She has a history of chronic urinary incontinence and this is unchanged. She does report increased urinary frequency. She denies any dysuria. She denies any fever, chills. She was noted to be tachycardic with a heart rate in the 130s. EKG showed sinus tachycardia. She was afebrile, lab work showed no evidence of anemia. Thyroid function tests were within normal limits. Tox screen was positive for opiates and amphetamines but she has prescription for narcotics as well as Adderall. She denies taking any additional doses or any other drugs. She denies any use of alcohol. She denies any dose adjustments or medication changes recently. She is on Adderall which she has been taking for the past 3 years. D-dimer was 961 and therefore she underwent CTA which showed no evidence of pulmonary embolism. She was treated with multiple doses of pain medication as well as IV fluid in her heart rate has improved somewhat. Given persistent tachycardia with significant symptoms the decision was made to admit her overnight for observation. Hospital Course: Patient was admitted for sinus tachycardia which was felt secondary to possible dehydration. TSH and T4 were within normal limits. She was treated with intravenous fluids with improvement in her tachycardia with rates improving from the 130s down to the 100s. Of note, the patient did endorse to her RN on the day of discharge as well as me that she had taken some extra doses of Adderall prior to hospitalization (because she was afraid to fall asleep and not wake up). It was suggested to the patient and patients mother that his maybe a contributing factor to her tachycardia, but at this time they are unwilling to consider even holding it for a single dose. In regards to her tachycardia being related to truely cardiac in nature, a cardiology consult was initially ordered but this was discontinued in light of the patients on going severe anxiety and her request to have any further evaluation at [facility]. At the mother and patients request, the cardiac monitor technician was removed as this was felt to be trigger for her anxiety. In the emergency room an elevated D-dimer was revealed and she underwent a CTA of the chest which was negative for pulmonary embolism. A high sensitivity t roponin was negative as well an EKG did not reveal any acute ischemic changes.. Patient had multiple other complaints including neck and throat pain. She underwent further imaging with a CT of the neck which revealed moderate narrowing of the pharyngeal airway from tonsillar hypertrophy without any peritonsillar abscess or mass effect. She had no fevers or leukocytosis to suggest acute infection. Her blood cultures are negative at the time of discharge. Urine cultures growing less than 10 K colonies of group B strep. In regards to her history of hepatic system -- Her bilirubin was slightly elevated at 1.2 upon admission and increased to 1.8 at the time of discharge. Her other LFTs including ammonia and INR were within normal limits. Patient has a history of liver transplant along with a complex history including anxiety and PTSD. The patient's mother who is very involved in her care reached out to the patient's transplant providers at [facility] including both transplant online merchandiser (Dr. Mcneil) as well as transplant psychiatrist (Dr. Lewis) both of whom were in agreement and accepted transfer to [facility] under the services of Dr. Mcneil. Patient has been tested for COVID-19 prior to transfer, results are negative. Time Spent with Patient Time attestation: Total time spent providing and/or coordinating discharge services: Discharge coordination time: Greater than 30 minutes Quality: Stroke Does the patient have a stroke diagnosis?: No Physical Exam Vital Signs: Vital Signs: Last Vital Signs Temp 97.7 F 12/21/20 12:00 Pulse 111 H 12/21/20 12:00 Resp 20 12/21/20 12:00 BP 121/75 12/21/20 12:00 Pulse Ox 97 12/21/20 12:00 Body Mass Index 24.2 Const: Other: General - laying comfortaly in bed with eyes closed Telemonitor - Sinus tach improving trend to the low 100s Remainder of the physical including abdominal exam is unable to be completed at the request of the patient DS: Data Data Completed and Pending Labs on day of discharge: Labs on the day of day of admission WBC 6.8 Hemoglobin 14.0 Hematocrit 40.3 Platelets 184 Sodium 138 Potassium 3.3 Chloride 107 Bicarb 24 Anion gap 10 BUN 8 Creatinine 0.77 Calcium 9.8 Magnesium 1.7 Total bilirubin 1.2 Direct bilirubin 0.5 AST 17 ALT 21 Alkaline phosphatase 64 High sensitivity troponin less than 3.5 TSH 1.82 T4 10.4 (Range 4.5 - 12) Laboratory Results - last 24 hr 12/20/20 12/21/20 12/21/20 15:09 10:01 13:29 PT 12.8 INR 1.1 Lactic Acid 1.0 Total Bilirubin 1.8 H Direct Bilirubin 0.6 H AST 20 ALT 20 Alkaline Phosphatase 64 Ammonia Total Protein 7.6 Albumin 4.4 COVID-19 (ODIN) COVID-19 Clin Com 12/21/20 12/21/20 13:29 14:00 PT INR Lactic Acid Total Bilirubin Direct Bilirubin AST ALT Alkaline Phosphatase Ammonia 39 Total Protein Albumin COVID-19 (ODIN) Negative COVID-[address] Clin Com [address] Note [address]/CT soft tissue neck wo con IMPRESSION: Moderate narrowing of pharyngeal airway from tonsillar hypertrophy. No peritonsillar abscess or mass effect seen. There is no abnormal neck lymphadenopathy CT/CT angio chest PE protocol IMPRESSION: 1. No pulmonary embolism. No thoracic aortic dissection. 2. Lungs clear. No pneumothorax, airspace consolidation, or effusion. Discharge Plan Discharge Patient Disposition: [facility] Discharge Diagnosis: Tachycardia, Elevated Bilirubin Referrals: [facility] [Other] - 1 Week Rick Davenport MD [Primary Care Provider] - 1 Week Discharge Medications: Continued ondansetron HCl [Zofran] 4 mg Tablet 4 mg PO Q8H PRN (Reason: Nausea) RF: 0 amlodipine 5 mg Tablet 5 mg PO DAILY RF: 0 citalopram [Celexa] 20 mg Tablet 20 mg PO DAILY RF: 0 citalopram [Celexa] 20 mg Tablet 10 mg PO BEDTIME RF: 0 levothyroxine 50 mcg Tablet 50 mcg PO DAILY@0600 RF: 0 ursodiol 300 mg Capsule 300 mg PO BID RF: 0 docusate sodium [Colace] 100 mg Capsule 200 mg PO BID PRN (Reason: Constipation) RF: 0 omeprazole 20 mg Capsule,Delayed Release(Dr/Ec) 20 mg PO DAILY PRN (Reason: Acid Reflux) RF: 0 lorazepam 1 mg Tablet 0.5 - 1 mg PO TID PRN (Reason: Anxiety) RF: 0 tacrolimus 1 mg Capsule 2 mg PO BID RF: 0 dextroamphetamine-amphetamine [Adderall] 10 mg Tablet 20 mg PO DAILY RF: 0 dextroamphetamine-amphetamine [Adderall] 10 mg Tablet 10 mg PO DAILY@1400 RF: 0 hydrocodone-acetaminophen 5-325 mg Tablet 1 tab PO BID PRN (Reason: Pain (Scale Score 4-6)) RF: 0 lidocaine 5 % Adhesive Patch,Medicated 1 patch TOPICAL DAILY RF: 0 Linzess 145 mcg Capsule 145 mcg PO DAILY RF: 0 Discharge Orders: Discharge Order (Routine); Ordered 12/21/20 Ordered By: Duran Madrigal Diet: advance to usual diet Activity on Discharge: As tolerated Stand Alone Forms: Patient Portal Discharge page Care Plan Goals: To get further treatment at [facility] with the liver transplant team Health Concerns: Tachycardia, Pain, History of Liver transplant Plan of Treatment: Transfer to [facility] for further care Assessment: 35 yo F with a complex medical and psychiatric history who [place] [facility] [place] of complaints and was diagnosed with Sinus Tachycardia, pain and anxiety. Due to the complex nature of her illness and history of liver transplant, she has been accepted and is being transferred to, [facility] under the Hepatology team.
--- NOTE | 2020-12-21 15:00 | MHC.CM.PN ---
pt being transferred to [facility]
--- NOTE | 2020-12-21 15:09 | PC.NURSE ---
THIS AM PT WAS EXTREMELY ANXIOUS, AGITATED, HYPERVENTILATING. SHE REQUIRED SOOTHING TO CALM HER DOWN, SHE REQUIRED ASSIST WITH TRANS FROM BED TO COMMODE SHE WOULD BECOME WEAK AND BUCKLE AT THE KNEES. SHE WAS MADE HIGH FALL RISK AND CAMERA WAS PLACED. DR SALMON WAS IN TO SEE PT. HE ATTEMPTED TO DISCUSS WHAT HE THOUGHT WAS CAUSING HER RAPID HEART RATE AND LIGHTHEADEDNESS. HE TOLD HER HE THOUGHT SYMPTOMS MIGHT BE RELATED TO HER ADDERALL. SHE BECAME DEFENSIVE FEEL SHE WAS BEING ACCUSED OF DRUG SEEKING. AT THIS TIME SHE SHUT DOWN AND WOULD NO ENGAGE.. SHE BEGAN SOBBING. PT OBSERVER WAS PLACE WITH PT. LATER PT EXPRESSED TO ME THAT SHE DID NOT WANT ANY MALES IN HER ROOM THEY CAN'T BE TRUSTED . SHE ALSO STATED THAT SHE WAS TAKING SLIGHTLY MORE ADDERALL THAN WHAT WAS PRESCRIBED, BECAUSE SHE DIDN'T WHAT TO FALL ASLEEP, SHE WAS AFRAID SHE WOULD NOT WAKE UP. DR SALMON WAS MADE AWARE. PT MOTHER SPENT AFTERNOON WITH HER AND SHE WAS CALM AND RESTING.
[2020-12-21 15:55] VITALS: BP 112/72; PULSE 103; RESP 18; TEMP 37.4; O2SAT 96
[2020-12-21 16:00] VITALS: TEMP 36.9
[2020-12-21] MEDS: ondansetron HCL 4 MG/2 ML VIAL IVPUSH (18:10)
[2020-12-21] MEDS: 0.9 % Sodium Chloride Flush 3 ML SYRINGE IVFLUSH (18:39)
== END 2020-12-21 18:15 | disposition short-term general hospital (02) ==
LOC: HO.ED 15:59 → HO.EDOVER 16:41 → HO.S3 18:42 → HO.IMC 20:26
PROVIDERS: Physician Assistant; Admitting Provider Physician Assistant Medical; Emergency Provider Emergency Medicine Emergency Medical Services; PCP Internal Medicine; Visit Provider Family Medicine
DX: R00.2 Palpitations (principal); R00.0 Tachycardia, unspecified; R55 Syncope and collapse; E80.7 Disorder of bilirubin metabolism, unspecified; M54.2 Cervicalgia; R22.1 Localized swelling, mass and lump, neck; R07.9 Chest pain, unspecified; R06.02 Shortness of breath; R79.1 Abnormal coagulation profile; E03.9 Hypothyroidism, unspecified; I10 Essential (primary) hypertension; F41.8 Other specified anxiety disorders; Z20.822 Contact with and (suspected) exposure to COVID-19; Z88.8 Allergy status to other drugs, medicaments and biological substances; Z88.1 Allergy status to other antibiotic agents; Z91.040 Latex allergy status; Z94.4 Liver transplant status; Z79.899 Other long term (current) drug therapy
CPT/HCPCS: 36415; 70490; 71045; 71275; 80048; 80076; 80307; 80320; 81001; 81003; 81025; 82140; 83605; 83735; 84436; 84443; 84484; 85025; 85379; 85610; 87040; 87086; 87635; 93005; 96361; 96374; 96375; 99219; 99285; J1170; J1200; J2060; J2270; J2405; Q9967